=== PATIENT | male | born 1965 | race Caucasian/White ===

== ENCOUNTER 2020-03-29 14:04 | Inpatient (IN) ==
[2020-03-29] MEDS ORDERED: hydrALAZINE HCL 20 MG/ML VIAL IV STA ×2 (14:27→16:05)
--- NOTE | 2020-03-29 14:32 | Emergency Department Note ---
Impression & Plan Hypertensive urgency, Headache, Failure of outpatient treatment ED Provider Note NAME: WILLIAM MEJIA AGE: 54 SEX: M : 1965 ARRIVES VIA: Walk-In INFORMANT: [Patient] ED PROVIDER(S): [Lane Gastelum MD] CHIEF COMPLAINT: Hypertension HISTORY OF PRESENT ILLNESS: The patient is a 54-year-old male who states that he has a history of hypertension. His blood pressure was controlled a few months ago but in the last few weeks, maybe 2 weeks, he has noticed some headaches again and he did buy a home BP monitor. His blood pressure has been higher. His doctors office made some changes to his medications and referred him to cardiology. The patient was seen today by cardiology and his blood pressure was quite high. The patient has had some intermittent chest pain at times, no shortness of breath. He denies weakness in 1 arm or 1 leg. No known Covid exposures. There has been no vomiting or diarrhea. The patient was sent to this ED today for hospitalization. He is going to require a hospital stay to figure out the best regimen to control his increasing blood pressure. REVIEW OF SYSTEMS: See HPI for pertinent positives and negatives. A total of ten systems were reviewed and were otherwise negative. PMHx/PSHx: See Below SOCIAL HISTORY: See Below. PHYSICAL EXAM: GENERAL: Patient is in no acute distress. HEENT: No acute trauma, normocephalic atraumatic, mucous membranes moist, no nasal congestion, no scleral icterus. NECK: No stridor, no adenopathy, no meningismus, trachea is midline. LUNGS: Clear to auscultation bilaterally, no wheeze, no rhonchi, breath sounds equal. HEART: Bradycardic, regular rhythm, no murmurs. ABDOMEN: Soft, nontender, bowel sounds positive, no hernias, no peritonitis. EXTREMITIES: No cyanosis or edema, full range of motion of all the joints without pain or difficulty, no signs for acute trauma. NEUROLOGIC: Oriented x 3, no acute motor or sensory deficits, no focal weakness. SKIN: No rash, no jaundice, no diaphoresis. DIFFERENTIAL DIAGNOSIS: Benign hypertension, hypertensive emergency, cardiovascular pathology, toxicologic, pheochromocytoma, electrolyte abnormality, renal disease, end-organ damage, as well as other pathologies. EMERGENCY DEPARTMENT COURSE/PROCEDURES: ECG: Indication was hypertension. The ECG shows a sinus bradycardia with some LVH. There is a left bundle branch block present. No ST elevation, no PVCs. The QTc is 477. No old ECG available for comparison. Continuous Cardiac Monitoring: An order was placed for continuous cardiac monitoring. The monitor shows a rate of 70 with normal sinus rhythm. MEDICAL DECISION MAKING: There is a mild leukocytosis, this could be consistent with infection or just the stress of his current situation. There is a normal hemoglobin and platelet count. Potassium slightly low at 3.1, no kidney failure. No worrisome liver enzyme elevation. The patient appears to be in a euthyroid state. Chest film does not show pneumonia or CHF. ECG shows a sinus bradycardia, there was LVH present, there was no acute ischemic change. Cardiac enzyme testing x1 is not consistent with acute cardiac injury. On exam, there were no focal neurologic deficits. The patient was not toxic, he was hypertensive. The patient was given IV hydralazine, this did initially lower his blood pressure, a second dose of IV hydralazine was then required when the pressure joseph. The patient was sent in by cardiology. The patient is to be hospitalized for blood pressure management. He may undergo invasive cardiac testing as he has had some chest pain intermittently with his high blood pressure. I did speak to the patient, I talked with case management. The on-call hospitalist was consulted. Past Med/Surg History Medical History GERD (gastroesophageal reflux disease) Hypertension Family History Other Dementia Diabetes Hypertension Social History Smoking Status: Never smoker Feels Safe at Home: Yes Allergies Allergies Allergy/AdvReac Type Severity Reaction Status Date / Time Penicillins Allergy Unknown , Verified 10/25/19 23:35 Home Meds Home Medications Medication Instructions Recorded Confirmed fluticasone propionate [Flonase 1 spray INTRANASAL DAILY 12/16/18 03/29/20 Allergy Relief] omeprazole 20 mg PO DAILY 12/16/18 03/29/20 aspirin [Baby Aspirin] 81 mg PO DAILY 03/29/20 03/29/20 diltiazem HCl 120 mg PO BID 03/29/20 03/29/20 metoprolol tartrate 50 mg PO BID 03/29/20 03/29/20 multivitamin 1 tab PO DAILY 03/29/20 03/29/20 rosuvastatin 5 mg PO HS 03/29/20 03/29/20 tizanidine 2 mg PO TID PRN 03/29/20 03/29/20 Results & Data (ED) Vital Signs Vital Signs - 24 hr 03/29/20 14:12 03/29/20 14:26 03/29/20 14:30 Temperature 36.8 C Temperature Source Oral Pulse Rate 59 L 64 50 L Respiratory Rate 18 18 19 Blood Pressure 205/103 H 189/91 H Blood Pressure Mean 137 116 Pulse Oximetry 98 Oxygen Delivery Method Room Air Sepsis Recent Fever Within 48 Hours No Sepsis New/Unexplained Change in Mental Status No Sepsis Action Taken by Nursing No Action Required 03/29/20 14:31 03/29/20 14:45 03/29/20 15:00 Temperature Temperature Source Pulse Rate 46 L 54 L 55 L Respiratory Rate 17 Blood Pressure Blood Pressure Mean Pulse Oximetry Oxygen Delivery Method Sepsis Recent Fever Within 48 Hours Sepsis New/Unexplained Change in Mental Status Sepsis Action Taken by Nursing 03/29/20 15:07 03/29/20 15:16 03/29/20 15:30 Temperature Temperature Source Pulse Rate 64 57 L Respiratory Rate Blood Pressure 169/92 H 198/102 H Blood Pressure Mean 110 129 Pulse Oximetry Oxygen Delivery Method Sepsis Recent Fever Within 48 Hours Sepsis New/Unexplained Change in Mental Status Sepsis Action Taken by Nursing 03/29/20 15:35 03/29/20 15:45 03/29/20 15:46 Temperature Temperature Source Pulse Rate 55 L 0 L 0 L Respiratory Rate Blood Pressure 205/105 H Blood Pressure Mean 120 Pulse Oximetry Oxygen Delivery Method Sepsis Recent Fever Within 48 Hours Sepsis New/Unexplained Change in Mental Status Sepsis Action Taken by Nursing 03/29/20 16:02 03/29/20 16:03 Temperature Temperature Source Pulse Rate 68 71 Respiratory Rate 15 18 Blood Pressure 211/101 H Blood Pressure Mean 127 Pulse Oximetry Oxygen Delivery Method Sepsis Recent Fever Within 48 Hours Sepsis New/Unexplained Change in Mental Status Sepsis Action Taken by [facility]way Medications Current Medication List: was personally reviewed by me Laboratory Data Attestation: I reviewed the patient's lab results. Result diagrams: 03/29/20 14:46 03/29/20 14:46 Lab Results 03/29/20 03/29/20 Range/Units 14:46 14:46 WBC 12.11 H (4.8-10.8) K/uL RBC 5.11 (4.7-6.1) M/uL Hgb 15.4 (14.0-18.0) g/dL Hct 44.4 (42-52) % MCV 86.9 (80-100) fL MCH 30.1 (25-34) pg MCHC 34.7 (32-36) g/dL RDW Std Deviation 41.6 (36.4-46.3) fL RDW Coeff of Cindi 13.0 (11.5-14.5) % Plt Count 309 (130-400) K/uL MPV 9.6 (7.4-10.4) fL Immature Gran % (Auto) 0.2 % Neut % (Auto) 85.1 % Lymph % (Auto) 8.6 % Mclean % (Auto) 5.3 % Eos % (Auto) 0.6 % Baso % (Auto) 0.2 % Neut # (Auto) 10.30 H (1.4-6.5) K/uL Lymph # (Auto) 1.04 L (1.2-3.4) K/uL Mclean # (Auto) 0.64 H (0.11-0.59) K/uL Eos # (Auto) 0.07 (0-0.5) K/uL Baso # (Auto) 0.03 (0-0.2) K/uL Immature Gran # (Auto) 0.03 H (0.00-0.02) K/uL Sodium 138 (136-145) mmol/L Potassium 3.1 L (3.5-5.1) mmol/L Chloride 101 (98-107) mmol/L Carbon Dioxide 29 (21-32) mmol/L Anion Gap 8.0 (3-11) BUN 17 (7-18) mg/dl Creatinine 1.06 (0.6-1.4) mg/dl Est Cr Clr Drug Dosing 81.5 ml/min Est GFR ( Amer) 93.1 Est GFR (Non-Af Amer) 80.3 BUN/Creatinine Ratio 16.2 (10-20) Glucose 98 (70-99) mg/dl Calcium 9.5 (8.5-10.1) mg/dl Magnesium 2.4 (1.8-2.4) mg/dl Total Bilirubin 0.8 (0.2-1) mg/dl AST 18 (15-37) U/L ALT 34 (12-78) U/L Alkaline Phosphatase 81 (45-117) U/L Troponin I < 0.015 (0-0.045) ng/ml Total Protein 8.6 H (6.4-8.2) gm/dl Albumin 4.5 (3.4-5.0) gm/dl Globulin 4.1 H (2.5-4.0) gm/dl Albumin/Globulin Ratio 1.1 (0.9-2) TSH 2.380 (0.300-4.500) uIu/ml Administered Medications Discontinued Medications Hydralazine HCl (Hydralazine Hcl 20 Mg/Ml Vial) 10 mg IV NOW STA Stop: 03/29/20 14:28 Last Admin: 03/29/20 15:05 Dose: 10 mg Documented by: [id number] Hydralazine HCl (Hydralazine Hcl 20 Mg/Ml Vial) 10 mg IV NOW STA Stop: 03/29/20 16:06 Last Admin: 03/29/20 16:20 Dose: 10 mg Documented by: [id number] Imaging Data Radiologist's Impression: XR chest 1V portable HISTORY: weakness COMPARISON: Chest 10/25/2019. FINDINGS: The lungs are clear. Cardiac silhouette is borderline enlarged. No pleural effusions. No pneumothorax. No evidence for pulmonary edema. No rib fractures. IMPRESSION: Borderline cardiomegaly, unchanged. Otherwise, no acute process within the chest. Discharge Plan Visit Data Chief Complaint: Hypertension Stated Complaint: HYPERTENSION,ABNORMAL EKG ED Provider: Lane Gastelum Discharge Problem: Hypertensive urgency, Headache, Failure of outpatient treatment Patient Disposition: Admitted As Inpatient Condition: Good Forms Stand Alone Forms: My [email or web address] Prescriptions Prescriptions: No Action omeprazole 20 mg capsule,delayed release(DR/EC) 20 mg PO DAILY RF: 0 fluticasone propionate [Flonase Allergy Relief] 50 mcg/actuation [employer],Suspension 1 spray INTRANASAL DAILY RF: 0 multivitamin Tablet 1 tab PO DAILY RF: 0 tizanidine 2 mg tablet 2 mg PO TID PRN (Reason: Spasms) RF: 0 metoprolol tartrate 50 mg tablet 50 mg PO BID RF: 0 aspirin [Baby Aspirin] 81 mg Tablet,Chewable 81 mg PO DAILY RF: 0 diltiazem HCl 60 mg tablet 120 mg PO BID RF: 0 rosuvastatin 5 mg tablet 5 mg PO HS RF: 0 Referrals Referrals: Bette Duff MD [Primary Care Provider] - Discharge Problem: Headache Qualifiers: Headache type: unspecified Headache chronicity pattern: acute headache Intractability: intractable Qualified Code(s): R51.9 - Headache, unspecified
[2020-03-29 15:14] LABS: Basophils # (auto) 0.03 K/uL (0-0.2); Basophils % (auto) 0.2 %; Eosinophils # (auto) 0.07 K/uL (0-0.5); Eosinophils % (auto) 0.6 %; Hematocrit (blood only) 44.4 % (42-52); Hemoglobin 15.4 g/dL (14.0-18.0); Immature Granulocytes # (auto) 0.03 K/uL (0.00-0.02); Immature Granulocytes % (auto) 0.2 %; Lymphocytes # (auto) 1.04 K/uL (1.2-3.4); Lymphocytes % (auto) 8.6 %; Mean Corpuscular Hemoglobin 30.1 pg (25-34); Mean Corpuscular Hgb Conc 34.7 g/dL (32-36); Mean Corpuscular Volume 86.9 fL (80-100); Mean Platelet Volume 9.6 fL (7.4-10.4); Monocytes # (auto) 0.64 K/uL (0.11-0.59); Monocytes % (auto) 5.3 %; Neutrophils % (auto) 85.1 %; Platelet Count 309 K/uL (130-400); RDW Standard Deviation 41.6 fL (36.4-46.3); Red Blood Count 5.11 M/uL (4.7-6.1); White Blood Count 12.11 K/uL (4.8-10.8)
[2020-03-29 15:40] LABS: Alanine Aminotransferase 34 U/L (12-78); Albumin Level 4.5 gm/dl (3.4-5.0); Aspartate Aminotransferase 18 U/L (15-37); BUN Creatinine Ratio 16.2 (10-20); Blood Urea Nitrogen 17 mg/dl (7-18); Calcium 9.5 mg/dl (8.5-10.1); Carbon Dioxide 29 mmol/L (21-32); Chloride 101 mmol/L (98-107); Creatinine Clr Calc Pharmacy 81.5 ml/min; Est GFR (African American) 93.1; Est GFR (Non-African American) 80.3; Glucose 98 mg/dl (70-99); Magnesium 2.4 mg/dl (1.8-2.4); Potassium 3.1 mmol/L (3.5-5.1); Sodium 138 mmol/L (136-145)
--- NOTE | 2020-03-29 15:41 | XRay Report ---
XR chest 1V portable HISTORY: weakness COMPARISON: Chest 10/25/2019. FINDINGS: The lungs are clear. Cardiac silhouette is borderline enlarged. No pleural effusions. No pn eumothorax. No evidence for pulmonary edema. No rib fractures. IMPRESSION: Borderline cardiomegaly, unchanged. Otherwise, no acute process within the chest. ACT 112: Negative or not required by law. Electronically signed by: Moses Gaona M.D. 03/29/2020 3:40 PM
[2020-03-29 15:51] LABS: Albumin Globulin Ratio 1.1 (0.9-2); Alkaline Phosphatase 81 U/L (45-117); Bilirubin,Total 0.8 mg/dl (0.2-1); Globulin 4.1 gm/dl (2.5-4.0); Total Protein 8.6 gm/dl (6.4-8.2); Troponin I < 0.015 ng/ml (0-0.045)
[2020-03-29 17:04] LABS: Appearance Urine Clear (Clear); Bilirubin Urine Negative (Negative); Blood Urine Negative (Negative); Color Urine Yellow; Glucose Urine UA Negative (Negative); Ketones Urine Trace (Negative); Leukocyte Esterase Urine Negative (Negative); Nitrite Urine Negative (Negative); Protein Urine Negative (Negative); Specific Gravity Urine 1.007 (1.000-1.030); Urobilinogen Urine Negative (Negative)
[2020-03-29] MEDS ORDERED: POTASSIUM CHLORIDE CRTAB 20 MEQ TABCR PO STA (17:10)
--- NOTE | 2020-03-29 17:10 | Electrocardiogram Report ---
Test Reason : Blood Pressure : / mmHG Vent. Rate : 054 BPM Atrial Rate : 054 BPM P-R Int : 180 ms QRS Dur : 154 ms QT Int : 504 ms P-R-T Axes : 042 -39 094 degrees QTc Int : 477 ms Poor data quality, interpretation may be adversely affected Sinus bradycardia Possible Left atrial enlargement Left axis deviation Left bundle branch block Abnormal ECG When compared with ECG of 25-OCT-2019 22:08, No significant change was found Confirmed by Darell Mann ([id number]) on 03/29/2020 5:09:52 PM Referred By: Confirmed By:Osbaldo Mann
[2020-03-29] MEDS ORDERED: LORazepam 0.5 MG/1 ML VIAL IV STA (17:34)
[2020-03-29] MEDS ORDERED: STAT IV Infusion **Titration per Protocol STA (17:37)
[2020-03-29] MEDS ORDERED: niCARdipine 25 MG in SODIUM CHLORIDE 0.9% 240 ML IV SCH (17:45)
--- NOTE | 2020-03-29 18:02 | History & Physical Report ---
Date of Service March 29, 2020 Assessment & Plan (1) Hypertensive urgency: (2) LBBB (left bundle branch block): This is a 54 year old M who has a significant PMH of HTN, HLD, PRIMITIVO, less than 60% stenosis of R renal artery, GERD, depression who presents to ED at referral of cardiology secondary to hypertensive urgency. In ED patient did receive two 10 mg doses of IV hydralazine. Upon arrival patient's blood pressure was 205/103, HR 54. After administration of 1st 10mg dose of IV hydralazine it did reduce to 169/92, HR 70s. This was short-lived as he returned to 200s/100s. He received a second dose of the hydralazine without much improvement. Discussed case with cardiology Dr. Patino who recommends admission to ICU for nicardpine gtt. Admit to ICU start nicardipine gtt D/C metoprolol and diltiazem start coreg 12.5mg po bid, 1st dose tonight start losartan 50mg daily, 1st dose tonight CT head w/o contrast given THOMAS and hypertensive urgency cycle troponins due to chest pain, but does appear to be musculoskeletal component echocardiogram - last 01/2020 EF 55%, mild LVH, Grade 1 DD known LBBB - per cardiology likely to undergo cath on Friday but need to get BP better controlled (3) Hypokalemia: K 3.1 give 40 meq KCL x 1 now monitor bmp (4) Leucocytosis: WBC 12k, no s/sx of infection afebrile, monitor (5) HLD (hyperlipidemia): continue statin (6) PRIMITIVO (obstructive sleep apnea): CPAP at HS (7) Renal artery stenosis: Follows nephrology and has seen vascular < 60% of R renal artery stenosis continue ASA, statin (8) GERD (gastroesophageal reflux disease): continue PPI (9) DVT prophylaxis: SCD/TEDS for now until BP under better control Disposition: admit to ICU for nicardipine gtt Follow up: PCP Dr. Duff upon discharge Pt was seen and examined in collaboration with Dr. Mott, please see addendum History of Present Illness Chief Complaint: THOMAS x 1 month and elevated BP. 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 Primary Care Provider: Bette Duff MD This is a 54 year old M who has a significant PMH of HTN, HLD, PRIMITIVO, less than 60% stenosis of R renal artery, GERD, depression who presents to ED at referral of cardiology secondary to hypertensive urgency.Patient complains of headache for the past month. It comes and goes daily. Mostly distributed in the occipital region. Described as a dull ache. Nothing makes it better or worse. He also describes headache behind eyes but associated this to straining looking at computer screen at work. He also admits to subtle chest pressure which is worse with arm or torso movement. He states he has been lifting heavy boxes for moving and attributed to this. 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 Currently he denies any chest pain or shortness of breath at rest. He denies any known sick contacts, recent fever, chills, sweats, dizziness, syncope, cough, hemoptysis, palpitations, shortness of breath at rest, nausea, vomiting, abdominal pain, change in bowel or urinary habits. He states he was hospitalized last summer secondary to hypertension and had been doing well throughout January. He then noticed a return of his headaches and has been monitoring his BP at home. It has been consistently systolically 160s over 190s. He was seen and evaluated in cardiology clinic today and previously had adjustments made on his metoprolol and diltiazem. He previously had been on amlodipine but did not tolerate this secondary to swelling. Due to complaint of headache, chest pain and obvious h ypertensive urgency with blood pressures 200s over 110s in clinic he was referred to ED for further evaluation and admission. Pt does admit to significant amount of stress in last 2 months secondary to having to move with his and kids twice. Currently they are in transition to move again and are living with his in-laws. In ED patient did receive two 10 mg doses of IV hydralazine. Upon arrival patient's blood pressure was 205/103. After administration of 1st 10mg dose of IV hydralazine it did reduce to 169/92. This was short-lived as he returned to 200s over 100s. He received a second dose of the hydralazine without much improvement. His CBC is notable for mild leucocytosis of 12.1k, CMP notable for potassium 3.1 but troponin WNL. Chest x-ray negative for acute process. EKG initially showed sinus bradycardia HR 54 bpm and LBBB. Allergies Allergy/AdvReac Type Severity Reaction Status Date / Time Penicillins Allergy Unknown , Verified 10/25/19 23:35 Home Medications Medication Instructions Recorded Confirmed Type fluticasone propionate [Flonase 1 spray INTRANASAL DAILY 12/16/18 03/29/20 History Allergy Relief] omeprazole 20 mg PO DAILY 12/16/18 03/29/20 History aspirin [Baby Aspirin] 81 mg PO DAILY 03/29/20 03/29/20 History diltiazem HCl 120 mg PO BID 03/29/20 03/29/20 History metoprolol tartrate 50 mg PO BID 03/29/20 03/29/20 History multivitamin 1 tab PO DAILY 03/29/20 03/29/20 History rosuvastatin 5 mg PO HS 03/29/20 03/29/20 History tizanidine 2 mg PO TID PRN 03/29/20 03/29/20 History Past Med/Surg History Medical History Depression GERD (gastroesophageal reflux disease) HLD (hyperlipidemia) Hypertension PRIMITIVO (obstructive sleep apnea) Renal artery stenosis Surgical History History of colonoscopy History of tonsillectomy and adenoidectomy Family History Other Dementia Diabetes Hypertension Social History (Updated 03/29/20 @ 18:12 by Marianne Reza PA-C) Smoking Status: Never smoker Hx Alcohol Use: No Hx Substance Use: No Preferred Language: Latvian Communication Ability: Effective 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 Beliefs That Will Affect Care: None marital status: Current Living Situation: Spouse Current Living Situation Comment: 2 sons 2 yr and 5 yr old Other Information That Helps Us Care for You: No Feels Safe at Home: Yes Safety Concerns: Feels Safe At This Time Assistive Devices: None Review of Systems Review of Systems: All systems reviewed & are unremarkable except as noted in HPI & below Physical Exam Physical Exam: Constitutional: WD/WN, vitals as above, NAD, anxious, sitting up in bed, pleasant, conversing easily Head: Normocephalic, Atraumatic Eyes: PERRL, conjunctivae normal, anicteric sclerae ENMT: external ear and nose normal, oropharynx normal Neck: trachea midline, no thyromegaly normal visual inspection Respiratory: normal respiratory effort, lungs clear to auscultation, no wheeze, rales, rhonchi. Normal insp/exp effort, no accessory muscle use Cardiovascular: RRR, no murmur, no edema Vessels: no JVD or carotid bruit Chest: normal inspection of chest Abdomen: normal bowel sounds, soft, nontender, no hepatosplenomegaly Musculoskeletal: no cyanosis or clubbing, extremities motor strength 5/5 Skin: no rashes, warm and dry normal turgor Neurologic: PERRL, EOMI, accommodation nl, no face palsy, no dysarthria CN's II-XI intact bilaterally and moves all extremities Psychiatric: A+Ox3, euthymic affect : deferred Results & Data Results & Data ([facility]) Vital Signs (Past 12 Hours) Vital Signs Temp Pulse Resp BP Pulse Ox 03/29/20 17:31 80 19 98 03/29/20 17:30 81 21 211/111 H 99 03/29/20 17:27 82 14 99 03/29/20 17:26 80 20 199/110 H 99 03/29/20 17:20 80 22 200/112 H 98 03/29/20 17:10 98 03/29/20 17:09 79 15 98 03/29/20 16:30 75 19 207/101 H 95 03/29/20 16:15 71 16 208/109 H 95 03/29/20 16:03 71 18 211/101 H 03/29/20 16:02 68 15 03/29/20 15:46 0 L 03/29/20 15:45 0 L 205/105 H 03/29/20 15:35 55 L 03/29/20 15:30 198/102 H 03/29/20 15:16 57 L 03/29/20 15:07 64 169/92 H 03/29/20 15:00 55 L 03/29/20 14:45 54 L 03/29/20 14:31 46 L 17 03/29/20 14:30 50 L 19 189/91 H 03/29/20 14:26 64 18 03/29/20 14:12 36.8 C 59 L 18 205/103 H 98 Laboratory Results Short CBC 03/29/20 Range/Units 14:46 WBC 12.11 H (4.8-10.8) K/uL Hgb 15.4 (14.0-18.0) g/dL Hct 44.4 (42-52) % Plt Count 309 (130-400) K/uL BMP 03/29/20 14:46 Sodium 138 Potassium 3.1 L Chloride 101 Carbon Dioxide 29 BUN 17 Creatinine 1.06 Glucose 98 Calcium 9.5 Cardiac Enzymes 03/29/20 Range/Units 14:46 Troponin I < 0.015 (0-0.045) ng/ml Liver Function 03/29/20 Range/Units 14:46 Total Bilirubin 0.8 (0.2-1) mg/dl AST 18 (15-37) U/L ALT 34 (12-78) U/L Alkaline Phosphatase 81 (45-117) U/L Albumin 4.5 (3.4-5.0) gm/dl Urine 03/29/20 Range/Units 16:55 Urine Color Yellow Urine Appearance Clear (Clear) Urine pH 8.0 H (4.5-7.5) Ur Specific [place] 1.007 (1.000-1.030) Urine Protein Negative (Negative) Urine Glucose (UA) Negative (Negative) Diagnostic Findings CXR: IMPRESSION: Borderline cardiomegaly, unchanged. Otherwise, no acute process within the chest. Medications Administered Nicardipine HCl 25 mg/ Sodium (Chloride) 250 mls @ 50 mls/hr IV .Q5H [facility]; Protocol Stop: 04/28/20 17:44 Last Admin: 03/29/20 18:05 Dose: 5 mg/hr, 50 mls/hr Documented by: [id number] Cosigned by: [id number] Discontinued Medications Hydralazine HCl (Hydralazine Hcl 20 Mg/Ml Vial) 10 mg IV NOW STA Stop: 03/29/20 14:28 Last Admin: 03/29/20 15:05 Dose: 10 mg Documented by: [id number] Hydralazine HCl (Hydralazine Hcl 20 Mg/Ml Vial) 10 mg IV NOW STA Stop: 03/29/20 16:06 Last Admin: 03/29/20 16:20 Dose: 10 mg Documented by: [id number] Lorazepam (Ativan) 0.5 mg in 1 mls @ 1 mls/min IV NOW STA Stop: 03/29/20 17:35 Last Admin: 03/29/20 17:59 Dose: 1 mls/min Documented by: [id number] Potassium Chloride (Potassium Chloride Crtab 20 Meq Tabcr) 40 meq PO NOW STA Stop: 03/29/20 17:11 Last Admin: 03/29/20 17:15 Dose: 40 meq Documented by: [id number] ECG Rate (beats per minute): 54 Rhythm: sinus bradycardia Findings: + LBBB Code Status & VTE Plan Code Status Full Code VTE Prophylaxis Plan VTE Prophylaxis will be ordered: Yes Reason for no VTE drug order: Contraindicated (2/2 to hypertensive urgency will do SCD/TEDS for now) Supervising Physician Co-Signing Physician Notes Attending Addendum: care coordinated with KARMA Morgan please refer to her notes for full details, I agree with her notes patient seen and examined, records reviewed by myself as well on exam, patient seen sitting up, just had dinner, alert, oriented, comfortable States he feels improved compared to admission Chest pain-free, headache has resolved Denies dizziness, nausea vomiting, abdominal pain, shortness of breath no other symptoms VS noted and reviewed oriented x 3, not in distress, speaks in sentences with no effort nor accessory muscle use normal rate, regular rhythm, no murmurs clear breath sounds bilaterally non distended, soft, nontender no bipedal edema, erythema, warmth no neuro deficits WBC 12.1 Hg 15.4 Crea 1.06 Troponin: Negative CT head: No acute process EKG:: Left bundle branch block, unchanged compared to EKG on September 2019 ASSESSMENT AND PLAN Hypertensive urgency Multifactorial: Underlying essential hypertension, obstructive sleep apnea, renal artery stenosis Nicardipine drip started Hold losartan and carvedilol also initiated Cardiology service consulted Chest pain Likely secondary to underlying hypertensive urgency Initial troponin negative EKG showing chronic LBBB Trend troponins Echocardiogram Aspirin, losartan, carvedilol Possible cardiac cath on Friday other diagnoses and plan of care as per KARMA Morgan's notes Jamar Mott MD
--- NOTE | 2020-03-29 19:20 | CT Scan Report ---
CT SCAN OF THE BRAIN WITHOUT IV CONTRAST CLINICAL HISTORY: Headache. Hypertension. COMPARISON STUDY: CT of the brain dated 10/26/2019. TECHNIQUE: Unenhanced axial CT scan of the brain is performed from the vertex to the skull base. A d ose lowering technique was utilized adhering to the principles of ALARA. CT DOSE: 614.27 mGy.cm FINDINGS: Brain parenchyma: The brain parenchyma is normal in appearance. There is no hemorrhage, mass effect, or evidence of acute territorial ischemia by CT criteria. Negron-white matter differentiation is preser mer. No extra-axial fluid collection is seen. Ventricles, sulci, cisterns: Normal in configuration. Intracranial vasculature: The visualized intracranial vasculature at the skull base is normal in appe arance. Calvarium: Unremarkable. Sinuses and mastoids: The visualized paranasal sinuses are clear. The mastoid air cells are well pneu matized. Orbits: The bony orbits are grossly intact. IMPRESSION: No intracranial abnormality is identified. ACT 112: Negative or not required by law. Electronically signed by: Lane Garcia M.D. 03/29/2020 7:19 PM
[2020-03-29] MEDS ORDERED: POLYETHYLENE (MIRALAX) 17 GM PACK PO PRN (19:23)
[2020-03-29] MEDS ORDERED: ONDANSETRON INJ 2 MG/ML 2 ML VIAL IV PRN (19:23)
[2020-03-29] MEDS ORDERED: MAGNESIUM HYDROXIDE SUSP 30 ML UDC PO PRN (19:23)
[2020-03-29] MEDS ORDERED: ALUMINUM/MAGNESIUM SUSP 30 ML UDC PO PRN (19:23)
[2020-03-29] MEDS ORDERED: ICU PROTOCOL FOR HYPERGLYCEMIA PRN (19:23)
[2020-03-29] MEDS: ACETAMINOPHEN 325 MG TAB PO PRN (19:46)
[2020-03-29] MEDS: carvediloL 12.5 MG TAB PO SCH (19:49)
[2020-03-29] MEDS: ROSUVASTATIN CALCIUM 5 MG TAB PO SCH (19:50)
[2020-03-29] MEDS ORDERED: LOSARTAN POTASSIUM 50 MG TAB PO SCH (20:00)
--- NOTE | 2020-03-29 20:09 | Critical Care Consultation ---
Date of Consultation March 29, 2020 Assessment & Plan (1) Admitted to intensive care unit: Reason Critically Ill: 54-year-old male with hypertensive urgency with systolic blood pressures in the 200s with associated headache. Requiring close hemodynamic monitoring status post institution of nicardipine drip. NEURO - * CAM ICU: NEGATIVE * Headache: * Has appears to wax and wane over the last 2 weeks. * Has previously been associated with his hypertension. * Will continue to monitor for any changes or improvements pending improvement of his blood pressure. * No focal neurological deficits on exam, thankfully. CARDIAC/VASCULAR - * Hypertensive urgency: * Complicated by diagnosis of RIGHT-sided renal artery stenosis. * Has had improvement with IV hydralazine as well as addition of p.o. medications. * Titrate down nicardipine drip as tolerated. * Troponins initially negative. * EKG shows sinus bradycardia at 54 bpm. Ongoing left bundle branch block appreciated. QTc 477 ms. * Patient without chest pain or other concerning ACS symptoms during hypertensive urgency episode, thankfully. * Appreciate cardiology recommendations. * Monitor on telemetry. RESPIRATORY - * No history of pulmonary disease. * Saturating well on room air. GI/NUTRITION - * Heart healthy diet RENAL/LYTES - * Renal artery stenosis: * Obviously made on prior imaging studies. * With great improvement in blood pressure, would avoid repeat imaging studies at this time or further laboratory assessment. * No significant electrolyte derangements. - * No concerns at this time. ENDO - * No history of diabetes or thyroid disease. * BSGs per unit protocol. ISS --> gtt per unit policy. HEME - * Stable H&H. ID - * No concerns for infectious process at this time. LINES/IV ACCESS - * PIVs x2 DVT PROPHYLAXIS - * Will hold on chemoprophylaxis at this time with anticipation for early ambulation given significant improvement in blood pressure control. * SCDs I have personally spent 35 minutes of critical care time in the direct management of this patient. This is a life/limb threatening event. This includes time spent evaluating patient, direct bedside care, chart review, placing orders, interpretation of diagnostic studies, discussion with consultants, patient, and family members, as well as other required patient management activities. This time is exclusive of all separately billable procedures, and teaching time and separate from and in addition to any other critical care service time. Thank you for allowing us to participate in the care of this patient. Please refer to my attending physician's documentation for any further recommendations. (2) Hypertensive urgency: (3) Headache: (4) HLD (hyperlipidemia): (5) PRIMITIVO (obstructive sleep apnea): (6) Renal artery stenosis: (7) Depression: (8) Hypokalemia: (9) LBBB (left bundle branch block): History of Present Illness Attending Physician: Jamar Mott MD History of Present Illness Patient is a 54-year-old male with significant past medical history of hypertension, hyperlipidemia, obstructive sleep apnea, renal artery stenosis, and depression who presented to the emergency department after being seen on a regular follow-up visit at his outpatient cardiology clinic. Per the patient, he states that he has been experiencing headaches over the last few weeks. He states they wax and wane, but have become more consistent over the last few days. He describes the headache is constant and located across the entire middle of his head extending from the forehead to the occiput. His blood pressure readings were found to be 200s over 100s in the clinic. He was directed to the emergency department for further evaluation and management of his hypertensive urgency. Upon evaluation in the emergency department, the patient was treated with IV hydralazine. CT the head was found to be unremarkable. Troponin was initially negative. EKG demonstrates a sinus bradycardia with unchanged left bundle branch block. No ST elevations noted. Patient initiated on nicardipine drip and admitted to the ICU for further evaluation management. Upon evaluation in the ICU, the patient is awake, alert, and oriented. He states that his headache is feeling slightly better, but admits that it fluctuates in nature. Otherwise, he offers no complaints. Specifically, the patient denies any blurry vision, double vision, lightheadedness, slurred speech, facial droop, unilateral weakness/numbness, chest pain, palpitations, pleuritic pain, nausea, vomiting, abdominal pain. He denies any COVID-19 exposures or recent sequelae of symptoms. Allergies Allergy/AdvReac Type Severity Reaction Status Date / Time Penicillins Allergy Unknown , Verified 10/25/19 23:35 amlodipine AdvReac Mild edema Verified 03/30/20 08:31 Home Medications Medication Instructions Recorded Confirmed Type fluticasone propionate [Flonase 1 spray INTRANASAL DAILY 12/16/18 03/29/20 History Allergy Relief] omeprazole 20 mg PO DAILY 12/16/18 03/29/20 History aspirin [Baby Aspirin] 81 mg PO DAILY 03/29/20 03/29/20 History diltiazem HCl 120 mg PO BID 03/29/20 03/29/20 History metoprolol tartrate 50 mg PO BID 03/29/20 03/29/20 History multivitamin 1 tab PO DAILY 03/29/20 03/29/20 History rosuvastatin 5 mg PO HS 03/29/20 03/29/20 History tizanidine 2 mg PO TID PRN 03/29/20 03/29/20 History Patient History Medical History Depression GERD (gastroesophageal reflux disease) HLD (hyperlipidemia) Hypertension PRIMITIVO (obstructive sleep apnea) Renal artery stenosis Surgical History History of colonoscopy History of tonsillectomy and adenoidectomy Family History Other Dementia Diabetes Hypertension Social History Smoking Status: Never smoker Hx Alcohol Use: No Hx Substance Use: No Preferred Language: [place] Communication Ability: Effective 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 All else were negative. Physical Exam Physical Exam: VITAL SIGNS - Vital signs and nursing notes were reviewed. GENERAL - 54-year-old male appearing his stated age who is in no acute distress. Communicates well with provider and answers questions appropriately. HEAD - Normocephalic, Atraumatic. No Waters's Sign or Raccoon's Eyes. No depressed skull fractures palpable. EYES - PERRL with EOMI bilaterally. Sclera anicteric. Palpebral conjunctiva pink and moist with no injection noted. EARS - No deformities of external structures noted on gross examination bilaterally. NOSE - Midline and without cyanosis. No epistaxis or purulent drainage noted. MOUTH/OROPHARYNX - Without perioral cyanosis. Buccal mucosa pink and moist and without leukoplakia. Tongue midline with equal elevation of palate bilaterally. No tonsillar hypertrophy, erythema, or exudates noted. Good dentition noted. NECK - Neck with FROM. Supple to palpation. No lymphadenopathy noted. No nuchal rigidity. LUNGS - Chest wall symmetric without accessory muscle use, intercostals retr actions, or central cyanosis. Normal vesicular breath sounds CTA B/L. No wheezes, rales, or rhonchi appreciated. CARDIAC - RRR with S1/S2. No murmur, rubs, or gallops appreciated. ABDOMEN - Abdominal contour flat without pulsations or visible masses. BS normoactive all four quadrants. No tenderness, palpable masses, hepatosplenomegaly, or ascites noted. EXTREMITIES - No pretibial edema present. +3/5 radial and dorsalis pedis pulses palpated throughout. FROM with no tremors, fasciculations, or clonus noted on PROM throughout. +5/5 strength noted in UE/LE bilaterally. NEUROLOGIC - Cranial nerves II through XII grossly intact. Sensory intact to light touch throughout. Patellar reflexes +2/4, Achilles reflexes present. Patient able to perform rapid alternating movements appropriately. Negative Pronator Drift. PSYCH - A&Ox3 and cooperates fully with examiner. Pt is very pleasant and interacts well with examiner. Results & Data Results & Data ([facility]) Vital Signs (Past 12 Hours) Vital Signs Temp Pulse Resp BP Pulse Ox 03/29/20 18:46 96 H 19 03/29/20 18:45 96 H 15 181/94 H 03/29/20 18:31 94 H 21 03/29/20 18:30 91 H 15 176/93 H 03/29/20 18:16 81 18 97 03/29/20 18:15 88 18 189/103 H 96 03/29/20 18:06 79 16 98 03/29/20 18:05 79 17 204/110 H 98 03/29/20 18:00 82 16 214/110 H 99 03/29/20 17:31 80 19 98 03/29/20 17:30 81 21 211/111 H 99 03/29/20 17:27 82 14 99 03/29/20 17:26 80 20 199/110 H 99 03/29/20 17:20 80 22 200/112 H 98 03/29/20 17:10 98 03/29/20 17:09 79 15 98 03/29/20 16:30 75 19 207/101 H 95 03/29/20 16:15 71 16 208/109 H 95 03/29/20 16:03 71 18 211/101 H 03/29/20 16:02 68 15 03/29/20 15:46 0 L 03/29/20 15:45 0 L 205/105 H 03/29/20 15:35 55 L 03/29/20 15:30 198/102 H 03/29/20 15:16 57 L 03/29/20 15:07 64 169/92 H 03/29/20 15:00 55 L 03/29/20 14:45 54 L 03/29/20 14:31 46 L 17 03/29/20 14:30 50 L 19 189/91 H 03/29/20 14:26 64 18 03/29/20 14:12 36.8 C 59 L 18 205/103 H 98 Coding Level of Care Code Critical Care 1st 30-74 mins Diagnoses Admitted to intensive care unit Z78.9 Hypertensive urgency I16.0 Headache R51.9 Headache chronicity pattern: acute headache Headache type: unspecified Intractability: intractable HLD (hyperlipidemia) E78.5 PRIMITIVO (obstructive sleep apnea) G47.33 Renal artery stenosis I70.1 Depression F32.9 Hypokalemia E87.6 LBBB (left bundle branch block) I44.7 Time Spent (min) 35 (1) Headache Headache chronicity pattern: acute headache Headache type: unspecified Intractability: intractable Qualified Code(s): R51.9 - Headache, unspecified
[2020-03-30 03:09] LABS: Basophils # (auto) 0.03 K/uL (0-0.2); Basophils % (auto) 0.3 %; Eosinophils # (auto) 0.08 K/uL (0-0.5); Eosinophils % (auto) 0.8 %; Hemoglobin 13.9 g/dL (14.0-18.0); Immature Granulocytes # (auto) 0.03 K/uL (0.00-0.02); Immature Granulocytes % (auto) 0.3 %; Lymphocytes # (auto) 1.26 K/uL (1.2-3.4); Lymphocytes % (auto) 12.6 %; Mean Corpuscular Hemoglobin 30.5 pg (25-34); Mean Corpuscular Hgb Conc 34.8 g/dL (32-36); Mean Corpuscular Volume 87.7 fL (80-100); Mean Platelet Volume 9.6 fL (7.4-10.4); Monocytes # (auto) 0.89 K/uL (0.11-0.59); Monocytes % (auto) 8.9 %; Neutrophils # (auto) 7.69 K/uL (1.4-6.5); Neutrophils % (auto) 77.1 %; Platelet Count 290 K/uL (130-400); RDW Coefficient of Variation 13.3 % (11.5-14.5); RDW Standard Deviation 42.3 fL (36.4-46.3); Red Blood Count 4.56 M/uL (4.7-6.1); White Blood Count 9.98 K/uL (4.8-10.8)
[2020-03-30 03:27] LABS: BUN Creatinine Ratio 14.9 (10-20); Calcium 8.8 mg/dl (8.5-10.1); Creatinine Clr Calc Pharmacy 65.5 ml/min; Est GFR (African American) 71.4; Est GFR (Non-African American) 61.6; Potassium 3.5 mmol/L (3.5-5.1)
[2020-03-30 03:46] LABS: Troponin I 0.171 ng/ml (0-0.045)
--- NOTE | 2020-03-30 08:10 | Critical Care Progress Note ---
Date of Service March 30, 2020 Assessment & Plan (1) Hypertensive urgency: 54 yo M with hx PRIMITIVO w/o CPAP, HTN, HLD, LBBB, depression admitted for hypertensive urgency. 1) HTNive urgency - head CT negative for ischemic or acute changes in ER - agree with medication changes from cardizem and metoprolol to carvedilol and losartan. - taken off nicardipine drip overnight - high degree of anxiety, suspect part of elevated blood pressures in relation to recent stressful life events and poorly managed anxiety - patient also has not been able to get CPAP supplies for PRIMITIVO control, which will also help control BP going forward. - goal BP decrease by 25% within the next 12 hours to reduce risk of ischemic stroke - echocardiogram pending - okay to downgrade out of ICU to telemetry. - elevated troponin of 0.093 likely secondary to cardiac stress from HTN. Cardiac cath plan per cardiology Thank you for allowing us to be part of this patient's care. Please refer to Dr. Greene's documentation for any further recommendations. (2) LBBB (left bundle branch block): (3) Admitted to intensive care unit: (4) Renal artery stenosis: Admission and Anticipated Discharge Date Admission Date: March 29, 2020 Supervising Physician Co-Signing Physician Notes Dr. Ferraro was the resident-physician during care of patient. I separately evaluated patient for calderón portions of the history and the exam. I was present during the critical portion of medical decision making, and I discussed the case with the resident. I generally agree with the findings and plan except for any additions/exceptions noted. Patient's blood pressure substantially improved. Continue oral agents as per cardiology recommendations. He needs to be more compliant with his CPAP. He actually has not yet received a CPAP. Weight loss is advised. He has a lot of stress in his life which is likely contributing to his hypertension as well. He had a mild troponin leak which is likely related to demand ischemia. He does have mild chest pain. Cardiology is recommending a left heart cath as an outpatient. He is stable to be transferred to the floor. Subjective Anxious 54 yo M admitted for hypertensive urgency. this morning feels mildly better than when admitted, says mostly he is less anxious but still concerned about the turn of events and level of care he is requiring. States his blood pressures were normal in january when he saw his PCP dr. pierce. By february, he had many more stressors, including having to move his family twice in 3 months and noted his blood pressures at home were increasing. His PCP changed his medication regimen to include cardizem and metoprolol, and sent him to Dr. Patino for evaluation. At Dr. Patino's office he was found to be hypertensive in the 200s/100s and sent to the ED for evaluation. Diet includes processed foods, but he does not add salt on top of food. Drinks lots of water during the day. Describes headaches that he has as going from top of his head down his neck and back of head. fairly constant on and off throughout the last 3 weeks. Denies blurring vision, weakness, dizziness, chest pain, abdominal pain, numbness, tingling. Review of Systems Constitutional: no fever, no chills, no body aches and no fatigue Respiratory: no cough and no dyspnea Cardiovascular: no chest pain, no dyspnea and no edema Gastrointestinal: no abdominal pain, no nausea, no vomiting, no constipation and no diarrhea/loose stools Neurologic: + headache(s); no localized weakness, no generalized weakness, no tingling, no numbness, no dizziness and no confusion Psychiatric: + anxiety Physical Exam Physical Exam: VITAL SIGNS - Vital signs and nursing notes were reviewed. GENERAL - 54-year-old Male anxious appearing sitting up in bed SKIN - Without rashes. HEAD - NC/AT. EYES - PERRL. Sclera anicteric. Palpebral conjunctiva pink and moist with no injection noted. LUNGS - CTA BL, no crackles, rhonchi, rubs. CARDIAC - RRR. No murmur, rubs, or gallops appreciated. ABDOMEN -soft nontender nondistended with normal bowel sounds. EXTREMITIES - No clubbing or peripheral cyanosis. No pretibial edema present. radial and dorsalis pedis pulses palpated bilaterally. NEUROLOGIC - No focal neurological deficits noted on exam. Results & Data Results & Data ([facility]) Vital Signs (Past 12 Hours) Vital Signs Temp Pulse Resp BP Pulse Ox 03/30/20 07:45 37.2 C 99 H 24 03/30/20 07:41 65 03/30/20 07:30 75 26 H 177/100 H 03/30/20 07:15 72 19 03/30/20 07:00 70 15 03/30/20 06:45 66 17 03/30/20 05:30 54 L 13 144/79 H 96 03/30/20 04:55 55 L 13 146/85 H 97 03/30/20 04:30 63 17 146/85 H 96 03/30/20 03:30 57 L 13 128/73 96 03/30/20 03:26 56 L 14 96 03/30/20 02:30 60 14 122/72 96 03/30/20 01:30 61 15 126/72 95 03/30/20 00:30 60 15 115/71 97 03/29/20 23:35 72 15 120/73 97 03/29/20 23:33 67 03/29/20 22:30 76 14 122/77 96 03/29/20 22:14 70 18 96 03/29/20 21:30 74 16 139/77 96 03/29/20 20:57 81 18 148/78 H 97 03/29/20 20:56 81 19 156/81 H 97 03/29/20 20:22 92 H 22 154/85 H 97 Laboratory Results WBC 9.98 K/uL (4.8-10.8) 03/30/20 02:36 RBC 4.56 M/uL (4.7-6.1) L 03/30/20 02:36 Hgb 13.9 g/dL (14.0-18.0) L 03/30/20 02:36 Hct 40.0 % (42-52) L 03/30/20 02:36 MCV 87.7 fL (80-100) 03/30/20 02:36 MCH 30.5 pg (25-34) 03/30/20 02:36 MCHC 34.8 g/dL (32-36) 03/30/20 02:36 RDW Std Deviation 42.3 fL (36.4-46.3) 03/30/20 02:36 RDW Coeff of Cindi 13.3 % (11.5-14.5) 03/30/20 02:36 Plt Count 290 K/uL (130-400) 03/30/20 02:36 MPV 9.6 fL (7.4-10.4) 03/30/20 02:36 Immature Gran % (Auto) 0.3 % 03/30/20 02:36 Neut % (Auto) 77.1 % 03/30/20 02:36 Lymph % (Auto) 12.6 % 03/30/20 02:36 [place] % (Auto) 8.9 % 03/30/20 02:36 Eos % (Auto) 0.8 % 03/30/20 02:36 Baso % (Auto) 0.3 % 03/30/20 02:36 Neut # (Auto) 7.69 K/uL (1.4-6.5) H 03/30/20 02:36 Lymph # (Auto) 1.26 K/uL (1.2-3.4) 03/30/20 02:36 [place] # (Auto) 0.89 K/uL (0.11-0.59) H 03/30/20 02:36 Eos # (Auto) 0.08 K/uL (0-0.5) 03/30/20 02:36 Baso # (Auto) 0.03 K/uL (0-0.2) 03/30/20 02:36 Immature Gran # (Auto) 0.03 K/uL (0.00-0.02) H 03/30/20 02:36 Sodium 140 mmol/L (136-145) 03/30/20 02:36 Potassium 3.5 mmol/L (3.5-5.1) 03/30/20 02:36 Chloride 106 mmol/L (98-107) 03/30/20 02:36 Carbon Dioxide 30 mmol/L (21-32) 03/30/20 02:36 Anion Gap 4.0 (3-11) 03/30/20 02:36 BUN 20 mg/dl (7-18) H 03/30/20 02:36 Creatinine 1.32 mg/dl (0.6-1.4) 03/30/20 02:36 Est Cr Clr Drug Dosing 65.5 ml/min 03/30/20 02:36 Est GFR ( Amer) 71.4 03/30/20 02:36 Est GFR (Non-Af Amer) 61.6 03/30/20 02:36 BUN/Creatinine Ratio 14.9 (10-20) 03/30/20 02:36 Glucose 98 mg/dl (70-99) 03/30/20 02:36 POC Glucose 107 mg/dl (70-99) H 03/30/20 11:08 Calcium 8.8 mg/dl (8.5-10.1) 03/30/20 02:36 Magnesium 2.4 mg/dl (1.8-2.4) 03/29/20 14:46 Total Bilirubin 0.8 mg/dl (0.2-1) 03/29/20 14:46 AST 18 U/L (15-37) 03/29/20 14:46 ALT 34 U/L (12-78) 03/29/20 14:46 Alkaline Phosphatase 81 U/L (45-117) 03/29/20 14:46 Troponin I 0.093 ng/ml (0-0.045) H* 03/30/20 05:48 Total Protein 8.6 gm/dl (6.4-8.2) H 03/29/20 14:46 Albumin 4.5 gm/dl (3.4-5.0) 03/29/20 14:46 Globulin 4.1 gm/dl (2.5-4.0) H 03/29/20 14:46 Albumin/Globulin Ratio 1.1 (0.9-2) 03/29/20 14:46 TSH 2.380 uIu/ml (0.300-4.500) 03/29/20 14:46 Urine Color Yellow 03/29/20 16:55 Urine Appearance Clear (Clear) 03/29/20 16:55 Urine pH 8.0 (4.5-7.5) H 03/29/20 16:55 Ur Specific Miller 1.007 (1.000-1.030) 03/29/20 16:55 Urine Protein Negative (Negative) 03/29/20 16:55 Urine Glucose (UA) Negative (Negative) 03/29/20 16:55 Urine Ketones Trace (Negative) H 03/29/20 16:55 Urine Blood Negative (Negative) 03/29/20 16:55 Urine Nitrite Negative (Negative) 03/29/20 16:55 Urine Bilirubin Negative (Negative) 03/29/20 16:55 Urine Urobilinogen Negative (Negative) 03/29/20 16:55 Ur Leukocyte Esterase Negative (Negative) 03/29/20 16:55 Nasal Screen MRSA (PCR) Negative (Negative) 03/29/20 19:30 SARS-CoV-2 Ag (Rapid) Negative (Negative) 03/29/20 Unknown Resident Activity Tracking Resident Involvement: Resident Care Provided Care Provided: Adult Hospital Medicine
[2020-03-30] MEDS: carvediloL 12.5 MG TAB PO SCH ×2 (08:46→20:20)
[2020-03-30] MEDS: LOSARTAN POTASSIUM 50 MG TAB PO SCH ×2 (08:46→20:20)
[2020-03-30] MEDS: MULTIVITAMIN TAB PO SCH (08:47)
[2020-03-30] MEDS: ASPIRIN 81 MG ECTAB PO SCH (08:47)
[2020-03-30] MEDS: PANTOprazole 40 MG TAB PO SCH (08:47)
[2020-03-30] MEDS ORDERED: amLODIPine BESYLATE 5 MG TAB PO SCH (09:00)
--- NOTE | 2020-03-30 10:22 | Cardiology Consultation ---
"Date of Consultation March 30, 2020 Assessment & Plan (1) Hypertensive urgency: (2) PRIMITIVO (obstructive sleep apnea): (3) Headache: (4) Renal artery stenosis: (5) GERD (gastroesophageal reflux disease): (6) LBBB (left bundle branch block): Per my recommendations the patient was admitted to the intensive care unit to be started on a nicardipine drip after 2 doses of IV hydralazine failed to improve his BP in the ER. Overnight his pressure significantly improved on nicardipine drip and weaned off. Currently this a.m. he states he is feeling a little bit better. Notes that his headache is mostly gone and has not had any bad chest discomfort that he noted previously. Still little anxious but overall feeling better. He was started on carvedilol 12.5 mg p.o. twice daily, losartan 50 mg p.o. twice daily and his outpatient metoprolol tartrate and diltiazem were discontinued. Pressures improve this a.m. after morning meds. EKG unchanged. Minimal troponin elevation not surprising given clinical setting. Plan will be to control blood pressure today with oral medications and proceed with cardiac catheterization in the a.m. on 03/31/2020. Plan again discussed with patient and he is in agreement. N.p.o. after midnight. Okay to transfer to telemetry as long as blood pressures remain stable this a.m. with his current oral regimen History of Present Illness Reason for Consultation: hypertensive urgency Requesting Physician: Dr. Mott Attending Physician: Jamar Mott MD History of Present Illness It was my pleasure to see Mr. Booth in re-evaluation today March 29, 2020. As you know he is a very pleasant 54-year-old gentleman who recently established with us here in the cardiology department for difficult to control hypertension. He presents today in routine follow-up stating these not been feeling well. He states that for approximately the last month he has been having issues with ongoing headaches. He denies any pattern to the headaches but states that they are usually constant. Upon further questioning of since he has had some vague chest pressure on occasion but he is not sure if it is related to activity. He states he feels tired and run down and just not his normal self. He has been compliant with his medications and his diltiazem was recently increased as well. He is set up for CPAP unfortunately has been some billing issues with the company and he has not received yet. PAST MEDICAL HISTORY: 1. Hypertension 2. Less than 60% stenosis of the right renal artery 3. Left bundle branch block 4. Depression 5. Erectile dysfunction 6. GERD 7. Obstructive sleep apnea Past Surgical History: Procedure Laterality Date COLONOSCOPY W/ BIOPSY (RECTUM) 07/21/08 diverticulosis- path normal COLONOSCOPY, DIAGNOSTIC (RECTUM) 09/04/2018 diverticulosis sigmoid and descending colon/biopsies show adenomatous polyps/recall 5 years/COLONOSCOPY FLEXIBLE PROXIMAL DIAGNOSTIC performed by Monroe Arango MD at ENDOSCOPY [facility] EGD, FLEXIBLE, W/BIOPSY 03/23/08 mild esophageal inflammation EGD, FLEXIBLE, W/BIOPSY 01/08/11 lymphangiectasia- await path REMOVE TONSILS & ADENOIDS, UNDER 12 T & A, age<12 Family History Problem Relation Age of Onset Endocrine Disorder Mother thyroid No Past Hx Father No Past Hx Grandmother (Maternal) Diabetes Grandmother (Maternal) No Past Hx Brother Social History Tobacco Use Smoking status: Never Smoker Smokeless tobacco: Never Used Tobacco comment: roommate smokes Substance Use Topics Alcohol use: Yes Comment: week ends beer 6 in 2 days Drug use: No He is . He lives at home with his and 2 young sons ages 4 and 2. 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 Review of Systems: Pertinent positives as per HPI, comprehensive 10 system review otherwise negative. Allergies as of 03/29/2020 - Reviewed 03/29/2020 Allergen Reaction Noted Amlodipine Edema Other 01/12/2020 Food (see comments) 07/04/2014 Pcn [penicillins] 07/16/2007 Current Outpatient Medications Medication Sig Dispense Refill tiZANidine HCl 2 MG Oral Tablet (ZANAFLEX) Take 1 Tab by mouth every 6 hours as needed for Muscle spasms. 30 Tab 5 Fluticasone Propionate 50 MCG/ACT Nasal Suspension (FLONASE) Administer 2 Sprays into each nostril daily. 47.4 mL 1 dilTIAZem HCl 60 MG Oral Tablet (CARDIZEM) TAKE 2 TABLETS BY MOUTH IN THE MORNING AND 1 TABLET AT NIGHT (Patient taking differently: TAKE 2 TABLETS BY MOUTH IN THE MORNING AND 2 TABLETs AT NIGHT) 90 Tab 2 Aspirin 81 MG Oral Tablet Chewable Take 1 Tab by mouth daily. with food. 100 Tab 5 Rosuvastatin Calcium 5 MG Oral Tablet (Crestor) Take 1 Tab by mouth daily. 30 Tab 5 Omeprazole 20 MG Oral Capsule Delayed Release (PriLOSEC) TAKE 1 CAPSULE DAILY 60 Cap 5 Metoprolol Tartrate 50 MG Oral Tablet (LOPRESSOR) Take 1 Tab by mouth 2 times a day. 60 Tab 5 Levocetirizine Dihydrochloride (XYZAL) 5 MG Tablet Take 1 Tab by mouth every evening. Clindamycin Phosphate 1 % external solution Apply the acne like spots on scalp and back of neck 2x daily when flaring until resolved 30 mL 2 econazole nitrate (SPECTAZOLE) 1 % cream Apply 2x daily to rash on face until resolved (next dermatology appointment) 85 g 3 Tadalafil (CIALIS) 10 MG Tablet Take 1 Tab by mouth daily as needed for Erectile Dysfunction. 8 Tab 5 BENADRYL ALLERGY 25 MG PO TABS 2 TABLETS AT ONSET OF ITCHING, HIVES AND E VERY 4 TO 6 HOURS NEEDED 30 Tab 5 MULTIVITAMINS PO CAPS daily 0 TYLENOL EXTRA STRENGTH 500 MG PO TABS 2 TABLETs EVERY 4 HOURS NEEDED 0 PHYSICAL EXAM: Vital Signs: BP 208/102 (BP Site: Right Arm, BP Position: Sitting, BP Cuff Size: Large) | Pulse 62 | Temp 36.1 C (96.9 F) (Tympanic) | Resp 16 | Wt 84.6 kg (186 lb 9.6 oz) | BMI 27.56 kg/m | BSA 2.03 m General: Awake, alert and oriented x 3. No acute distress. HEENT: Normocephalic, atraumatic. Pupils equal, round and reactive to light and accommodation. Extraocular muscles are intact. Anicteric sclera. Moist mucous membranes. Neck: No JVD. No bruit. Cardiovascular: Regular. Positive S-4. Normal S-1 and S-2. No S-3. No murmurs or rubs. Pulmonary: Clear to auscultation bilaterally. No rales, rhonchi, or wheezing. Abdomen: Bowel sounds x 4, soft. No rebound, guarding or tenderness. No organomegaly. Extremities: No clubbing, cyanosis or edema. +2 pedal pulses bilaterally. Skin: Warm and dry. Test results: Twelve lead EKG performed today and plan reviewed this time shows normal sinus rhythm at 62 beats per minute left bundle branch block with right axis deviation. The axis is shifted right considerably compared to his previous EKG. Echocardiogram from January 2020: Interpretation Summary The primary indication after review was deemed appropriate and the examination was performed. Normal LV chamber size with mild concentric LVH. Normal LV systolic function without regional wall motion abnormality. Calculated LV ejection Fraction = 58% (bi-plane method of discs). Grade 1 diastolic dysfunction. No significant valvular pathology. Mild left atrial enlargement. IMPRESSION: 1. Hypertensive urgency 2. Left bundle branch block with recent axis shift 3. Nonobstructive renal artery stenosis on the right 4. GERD 5. Hyperlipidemia RECOMMENDATIONS: It was my pleasure to see Mr. Booth in re-evaluation today. I do believe it that he is suffering from hypertensive urgency at this point with his pressure being over 200/100 and his vague symptoms of headache and chest discomfort. So after lengthy discussion it was agreed that he will proceed to [facility] Emergency Department for further workup, care and admission. I have discussed the case with the emergency room attending and he will likely be receiving IV hydralazine upon arrival. Obviously, blood work including troponin will be drawn as well. I would like to maximize his oral medications during admission and change his metoprolol to carvedilol and his diltiazem to felodipine (history of edema with amlodipine). Further changes may be considered as well. He was offered transfer via EMS but preferred to have his drive him. Given his left bundle branch block and chest discomfort he will require cardiac catheterization during this admission. The left bundle branch block is not new and does not qualify as ACS. However, full workup of his left bundle has not yet been completed. The patient left the office in good spirits after verbalizing that all of their questions were answered to satisfaction. Prior to their next visit, they were invited to call me with any questions or concerns. Thank you very much for allowing me to participate in the care of your patient. Allergies Allergy/AdvReac Type Severity Reaction Status Date / Time Penicillins Allergy Unknown , Verified 10/25/19 23:35 amlodipine AdvReac Mild edema Verified 03/30/20 08:31 Home Medications Medication Instructions Recorded Confirmed Type fluticasone propionate [Flonase 1 spray INTRANASAL DAILY 12/16/18 03/29/20 History Allergy Relief] omeprazole 20 mg PO DAILY 12/16/18 03/29/20 History aspirin [Baby Aspirin] 81 mg PO DAILY 03/29/20 03/29/20 History diltiazem HCl 120 mg PO BID 03/29/20 03/29/20 History metoprolol tartrate 50 mg PO BID 03/29/20 03/29/20 History multivitamin 1 tab PO DAILY 03/29/20 03/29/20 History rosuvastatin 5 mg PO HS 03/29/20 03/29/20 History tizanidine 2 mg PO TID PRN 03/29/20 03/29/20 History Patient History Medical History Depression GERD (gastroesophageal reflux disease) HLD (hyperlipidemia) Hypertension PRIMITIVO (obstructive sleep apnea) Renal artery stenosis Surgical History History of colonoscopy History of tonsillectomy and adenoidectomy Family History Other Dementia Diabetes Hypertension Social History Smoking Status: Never smoker Hx Alcohol Use: No Hx Substance Use: No Preferred Language: [place] Communication Ability: Effective Job Interviewer Required: No Beliefs That Will Affect Care: None marital status: Current Living Situation: Spouse Current Living Situation Comment: 2 sons 2 yr and 5 yr old Other Information That Helps Us Care for You: No Feels Safe at Home: Yes Safety Concerns: Feels Safe At This Time Assistive Devices: None Review of Systems Review of Systems: All systems reviewed & are unremarkable except as noted in HPI & below Physical Exam Physical Exam: General: Awake, alert and oriented x 3. No acute distress. HEENT: Normocephalic, atraumatic. Pupils equal, round and reactive to light and accommodation. Extraocular muscles are intact. Anicteric sclera. Moist mucous membranes. Neck: No JVD. No bruit. Cardiovascular: Regular. Positive S-4. Normal S-1 and S-2. No S-3. No murmurs or rubs. Pulmonary: Clear to auscultation B/L. No rales, rhonchi or wheezing Abdomen: Bowel sounds x 4, soft. No rebound, guarding or tenderness. No organomegaly. Extremities: No clubbing, cyanosis or edema. +2 pedal pulses bilaterally. Skin: Warm and dry. Results & Data ([facility]) Vital Signs (Past 12 Hours) Vital Signs Temp Pulse Resp BP Pulse Ox 03/30/20 10:15 70 13 96 03/30/20 10:03 75 97 03/30/20 09:31 83 25 H 109/103 H 03/30/20 09:30 79 18 03/30/20 09:15 72 16 03/30/20 09:00 80 20 03/30/20 08:45 81 22 03/30/20 08:30 84 20 168/88 H 03/30/20 08:15 79 17 03/30/20 08:00 77 18 03/30/20 07:45 37.2 C 99 H 24 03/30/20 07:41 65 03/30/20 07:30 75 26 H 177/100 H 03/30/20 07:15 72 19 03/30/20 07:00 70 15 03/30/20 06:45 66 17 03/30/20 05:30 54 L 13 144/79 H 96 03/30/20 04:55 55 L 13 146/85 H 97 03/30/20 04:30 63 17 146/85 H 96 03/30/20 03:30 57 L 13 128/73 96 03/30/20 03:26 56 L 14 96 03/30/20 02:30 60 14 122/72 96 03/30/20 01:30 61 15 126/72 95 03/30/20 00:30 60 15 115/71 97 03/29/20 23:35 72 15 120/73 97 03/29/20 23:33 67 03/29/20 22:30 76 14 122/77 96 (1) Headache Headache chronicity pattern: acute headache Headache type: unspecified Intractability: intractable Qualified Code(s): R51.9 - Headache, unspecified"
[2020-03-30] MEDS: ACETAMINOPHEN 325 MG TAB PO PRN ×2 (11:35→21:16)
--- NOTE | 2020-03-30 11:59 | Billing Data ---
Date of Service March 30, 2020 Coding Level of Care Code 96068 Subseq Hosp Care Lvl 3
[2020-03-30] MEDS: LORazepam 0.5 MG TAB PO PRN (12:25)
--- NOTE | 2020-03-30 13:00 | Electrocardiogram Report ---
Test Reason : Blood Pressure : / mmHG Vent. Rate : 066 BPM Atrial Rate : 066 BPM P-R Int : 190 ms QRS Dur : 152 ms QT Int : 474 ms P-R-T Axes : 054 -39 110 degrees QTc Int : 496 ms Normal sinus rhythm Left axis deviation Left bundle branch block Abnormal ECG When compared with ECG of 29-MAR-2020 14:21, No significant change was found Confirmed by Darell Mann ([id number]) on 03/30/2020 12:59:56 PM Referred By: Raji Patino Confirmed By:Osbaldo Mann
--- NOTE | 2020-03-30 19:43 | Hospitalist Progress Note ---
Date of Service March 30, 2020 Assessment & Plan (1) Hypertensive urgency: (2) LBBB (left bundle branch block): Per admitting service notes: This is a 54 year old M who has a significant PMH of HTN, HLD, PRIMITIVO, less than 60% stenosis of R renal artery, GERD, depression who presents to ED at referral of cardiology secondary to hypertensive urgency. In ED patient did receive two 10 mg doses of IV hydralazine. Upon arrival patient's blood pressure was 205/103, HR 54. After administration of 1st 10mg dose of IV hydralazine it did reduce to 169/92, HR 70s. This was short-lived as he returned to 200s/100s. He received a second dose of the hydralazine without much improvement. Discussed case with cardiology Dr. Patino who recommends admission to ICU for nicardpine gtt. Admit to ICU start nicardipine gtt D/C metoprolol and diltiazem start coreg 12.5mg po bid, 1st dose tonight start losartan 50mg daily, 1st dose tonight CT head w/o contrast given THOMAS and hypertensive urgency cycle troponins due to chest pain, but does appear to be musculoskeletal component echocardiogram - last 01/2020 EF 55%, mild LVH, Grade 1 DD known LBBB - per cardiology likely to undergo cath on Friday but need to get BP better controlled 03/30/2020 Troponins negative Echocardiogram ejection fraction 55 to 60%, abnormal septal wall motion consistent with LBBB pattern, otherwise normal wall motion, grade 1 diastolic dysfunction Weaned off nicardipine drip Now transitioned to p.o. losartan, carvedilol Amlodipine discontinued as patient reports severe edema with amlodipine use in the past Blood Pressure improving Continue to monitor closely For cardiac catheterization tomorrow (3) Hypokalemia: Resolved (4) Leucocytosis: Resolved No signs of infection (5) HLD (hyperlipidemia): continue statin (6) PRIMITIVO (obstructive sleep apnea): CPAP at HS (7) Renal artery stenosis: Follows nephrology and has seen vascular < 60% of R renal artery stenosis continue ASA, statin (8) GERD (gastroesophageal reflux disease): continue PPI (9) DVT prophylaxis: SCD/TEDS for now until BP under better control Disposition: Anticipate discharge to home medically stable Follow up: PCP Dr. Duff upon discharge Admission and Anticipated Discharge Date Admission Date: March 29, 2020 Subjective Follow-up for hypertensive urgency, chest pain Seen sitting up in bed, comfortable, not in distress States he feels better today compared to yesterday Headache recurred this morning but resolved since then Chest pain-free Denies dizziness, shortness of breath, abdominal pain, nausea, palpitations Admits to having anxiety, secondary to medical condition Denies having any major stressors at home or at work No other symptoms Review of Systems Review of Systems: All systems reviewed & are unremarkable except as noted in Subjective Physical Exam Physical Exam: General- oriented x 3, not in distress, speaks in sentences with no effort or accessory muscle use Eyes- anicteric Neck- no JVD Lungs- clear breath sounds bilaterally, no rales/wheezes Heart- normal rate, regular rhythm; no murmurs Abdomen- normal bowel sounds, nondistended, soft, nontender Extremities- no pretibial edema, no calf tenderness Neuro- alert, oriented x 3; no gross focal neurologic deficits Skin- warm & dry Results & Data Results & Data ([facility]) Vital Signs (Past 12 Hours) Vital Signs Temp Pulse Resp BP Pulse Ox 03/30/20 16:45 37.2 C 81 24 98 03/30/20 16:30 75 20 173/98 H 98 03/30/20 16:15 67 19 97 03/30/20 16:00 71 17 98 03/30/20 15:45 75 20 97 03/30/20 15:43 70 03/30/20 15:30 73 18 177/95 H 98 03/30/20 15:15 88 29 H 96 03/30/20 15:00 69 19 97 03/30/20 14:45 72 19 96 03/30/20 14:30 75 18 161/87 H 96 03/30/20 14:15 67 15 95 03/30/20 14:00 67 16 97 03/30/20 13:45 70 18 96 03/30/20 13:30 76 20 151/94 H 97 03/30/20 13:27 75 21 97 03/30/20 13:00 71 18 95 03/30/20 12:45 73 21 97 03/30/20 12:30 81 15 133/84 96 03/30/20 12:15 75 20 95 03/30/20 12:00 75 15 96 03/30/20 11:45 79 19 95 03/30/20 11:30 79 19 159/96 H 95 03/30/20 11:15 75 17 94 03/30/20 11:00 78 16 95 03/30/20 10:45 83 17 95 03/30/20 10:30 79 22 170/89 H 98 03/30/20 10:15 70 13 96 03/30/20 10:03 75 97 03/30/20 09:31 83 25 H 109/103 H 03/30/20 09:30 79 18 03/30/20 09:15 72 16 03/30/20 09:00 80 20 03/30/20 08:45 81 22 03/30/20 08:30 84 20 168/88 H 03/30/20 08:15 79 17 03/30/20 08:00 77 18 03/30/20 07:45 37.2 C 99 H 24 Laboratory Results Laboratory Results - last 24 hr 03/29/20 03/29/20 03/29/20 19:30 20:48 20:49 WBC RBC Hgb Hct MCV MCH MCHC RDW Std Deviation RDW Coeff of Cindi Plt Count MPV Immature Gran % (Auto) Neut % (Auto) Lymph % (Auto) [place] % (Auto) Eos % (Auto) Baso % (Auto) Neut # (Auto) Lymph # (Auto) [place] # (Auto) Eos # (Auto) Baso # (Auto) Immature Gran # (Auto) Sodium Potassium Chloride Carbon Dioxide Anion Gap BUN Creatinine Est Cr Clr Drug Dosing Est GFR ( Amer) Est GFR (Non-Af Amer) BUN/Creatinine Ratio Glucose POC Glucose 174 H Calcium Troponin I 0.053 H* Nasal Screen MRSA (PCR) Negative 03/30/20 03/30/20 03/30/20 02:36 02:36 05:48 WBC 9.98 RBC 4.56 L Hgb 13.9 L Hct 40.0 L MCV 87.7 MCH 30.5 MCHC 34.8 RDW Std Deviation 42.3 RDW Coeff of Cindi 13.3 Plt Count 290 MPV 9.6 Immature Gran % (Auto) 0.3 Neut % (Auto) 77.1 Lymph % (Auto) 12.6 [place] % (Auto) 8.9 Eos % (Auto) 0.8 Baso % (Auto) 0.3 Neut # (Auto) 7.69 H Lymph # (Auto) 1.26 [place] # (Auto) 0.89 H Eos # (Auto) 0.08 Baso # (Auto) 0.03 Immature Gran # (Auto) 0.03 H Sodium 140 Potassium 3.5 Chloride 106 Carbon Dioxide 30 Anion Gap 4.0 BUN 20 H Creatinine 1.32 Est Cr Clr Drug Dosing 65.5 Est GFR ( Amer) 71.4 Est GFR (Non-Af Amer) 61.6 BUN/Creatinine Ratio 14.9 Glucose 98 POC Glucose Calcium 8.8 Troponin I 0.171 H* 0.093 H* Nasal Screen MRSA (PCR) 03/30/20 03/30/20 07:35 11:08 WBC RBC Hgb Hct MCV MCH MCHC RDW Std Deviation RDW Coeff of Cindi Plt Count MPV Immature Gran % (Auto) Neut % (Auto) Lymph % (Auto) [place] % (Auto) Eos % (Auto) Baso % (Auto) Neut # (Auto) Lymph # (Auto) [place] # (Auto) Eos # (Auto) Baso # (Auto) Immature Gran # (Auto) Sodium Potassium Chloride Carbon Dioxide Anion Gap BUN Creatinine Est Cr Clr Drug Dosing Est GFR ( Amer) Est GFR (Non-Af Amer) BUN/Creatinine Ratio Glucose POC Glucose 105 H 107 H Calcium Troponin I Nasal Screen MRSA (PCR)
[2020-03-30] MEDS: ROSUVASTATIN CALCIUM 5 MG TAB PO SCH (20:20)
--- NOTE | 2020-03-31 07:48 | Electrocardiogram Report ---
Test Reason : Blood Pressure : / mmHG Vent. Rate : 066 BPM Atrial Rate : 066 BPM P-R Int : 176 ms QRS Dur : 150 ms QT Int : 460 ms P-R-T Axes : 035 -40 118 degrees QTc Int : 482 ms Normal sinus rhythm Possible Left atrial enlargement Left axis deviation Left bundle branch block Abnormal ECG When compared with ECG of 30-MAR-2020 06:32, No significant change was found Confirmed by Darell Mann ([id number]) on 03/31/2020 7:48:06 AM Referred By: Raji Patino Confirmed By:Osbaldo Mann
[2020-03-31] MEDS: LORazepam 0.5 MG TAB PO PRN ×2 (07:59→13:35)
[2020-03-31] MEDS: carvediloL 12.5 MG TAB PO SCH ×2 (07:59→21:04)
[2020-03-31] MEDS: LOSARTAN POTASSIUM 50 MG TAB PO SCH ×2 (07:59→21:04)
[2020-03-31] MEDS: MULTIVITAMIN TAB PO SCH (08:00)
[2020-03-31] MEDS: ASPIRIN 81 MG ECTAB PO SCH (08:00)
[2020-03-31] MEDS: PANTOprazole 40 MG TAB PO SCH (08:00)
--- NOTE | 2020-03-31 09:14 | Cardiology Progress Note ---
Date of Service March 31, 2020 Assessment & Plan (1) Hypertensive urgency: (2) PRIMITIVO (obstructive sleep apnea): (3) Headache: (4) Renal artery stenosis: (5) GERD (gastroesophageal reflux disease): (6) LBBB (left bundle branch block): Currently this a.m. he states he is feeling a little bit better. Anxiety improved with Ativan Still little anxious but overall feeling better. I do believe there is a significant anxiety component to his blood pressure at this point. Tolerating current regimen of carvedilol and losartan well. We will add felodipine this a.m. as well. Continue aspirin and rosuvastatin. For cardiac catheterization this a.m. Further recommendations to follow. Should the cardiac catheterization come back unremarkable and he remained asymptomatic with blood pressures relatively well controlled would be okay to discharge to home from a cardiac standpoint this p.m. or more likely tomorrow in the a.m. Admission and Anticipated Discharge Date Admission Date: March 29, 2020 Subjective Patient seen and examined, chart reviewed. States he is feeling well this morning. Remained anxious overnight but anxiety relieved with as needed Ativan. Denies any further chest pain or headaches. Denies shortness of breath, palpitations, lightheadedness, dizziness or syncope. Telemetry reviewed: Sinus rhythm without arrhythmia or significant ectopy. Underlying left bundle branch block pattern Review of Systems Review of Systems: All systems reviewed & are unremarkable except as noted in HPI & below Physical Exam Physical Exam: General: Awake, alert and oriented x 3. No acute distress. HEENT: Normocephalic, atraumatic. Pupils equal, round and reactive to light and accommodation. Extraocular muscles are intact. Anicteric sclera. Moist mucous membranes. Neck: No JVD. No bruit. Cardiovascular: Regular. Positive S-4. Normal S-1 and S-2. No S-3. No murmurs or rubs. Pulmonary: Clear to auscultation B/L. No rales, rhonchi or wheezing Abdomen: Bowel sounds x 4, soft. No rebound, guarding or tenderness. No organomegaly. Extremities: No clubbing, cyanosis or edema. +2 pedal pulses bilaterally. Skin: Warm and dry. Results & Data ([facility]) Vital Signs (Past 12 Hours) Vital Signs Pulse Resp BP 03/31/20 05:29 64 24 172/100 H 03/31/20 04:00 55 L 13 03/31/20 03:00 57 L 13 03/31/20 02:00 58 L 14 03/31/20 01:00 57 L 15 03/31/20 00:05 56 L 13 168/98 H 03/31/20 00:00 57 L 13 03/30/20 23:00 61 13 03/30/20 22:00 61 19 (1) Headache Headache chronicity pattern: acute headache Headache type: unspecified Intractability: intractable Qualified Code(s): R51.9 - Headache, unspecified
[2020-03-31] MEDS ORDERED: FELODIPINE 5 MG TABCR PO SCH (09:30)
[2020-03-31 10:16] LABS: Basophils # (auto) 0.02 K/uL (0-0.2); Basophils % (auto) 0.2 %; Eosinophils # (auto) 0.13 K/uL (0-0.5); Eosinophils % (auto) 1.4 %; Hematocrit (blood only) 43.9 % (42-52); Immature Granulocytes # (auto) 0.02 K/uL (0.00-0.02); Immature Granulocytes % (auto) 0.2 %; Lymphocytes # (auto) 1.08 K/uL (1.2-3.4); Lymphocytes % (auto) 11.5 %; Mean Corpuscular Hemoglobin 30.2 pg (25-34); Mean Corpuscular Hgb Conc 34.2 g/dL (32-36); Mean Corpuscular Volume 88.5 fL (80-100); Mean Platelet Volume 9.4 fL (7.4-10.4); Monocytes # (auto) 0.57 K/uL (0.11-0.59); Monocytes % (auto) 6.1 %; Neutrophils # (auto) 7.54 K/uL (1.4-6.5); Neutrophils % (auto) 80.6 %; Platelet Count 257 K/uL (130-400); RDW Coefficient of Variation 13.3 % (11.5-14.5); RDW Standard Deviation 43.1 fL (36.4-46.3); Red Blood Count 4.96 M/uL (4.7-6.1); White Blood Count 9.36 K/uL (4.8-10.8)
[2020-03-31] MEDS ORDERED: niCARdipine HCL INJ 2.5 MG/ML 10 ML AMP ONE (10:38)
[2020-03-31] MEDS ORDERED: HEPARIN (PORCINE) 1000 UNIT/ML 10 ML (CATH LAB USE ONLY) ONE (10:38)
[2020-03-31] MEDS ORDERED: fentaNYL citrate 100 MCG/2 ML VIAL ONE (10:39)
[2020-03-31] MEDS ORDERED: MIDAZOLAM HCL 1 MG/ML 2ML VIAL ONE (10:39)
[2020-03-31] MEDS ORDERED: NITROGLYCERIN/D5W 100MCG/ML 20ML SYR ONE (10:39)
[2020-03-31 10:42] LABS: BUN Creatinine Ratio 16.2 (10-20); Calcium 9.1 mg/dl (8.5-10.1); Creatinine Clr Calc Pharmacy 73.1 ml/min; Est GFR (African American) 74.1; Est GFR (Non-African American) 63.9; Potassium 3.9 mmol/L (3.5-5.1)
--- NOTE | 2020-03-31 10:58 | History & Physical Bridge Note ---
Date of Service March 31, 2020 History & Physical Bridge Note I have examined the patient, reviewed the History & Physical and in the interval since the performance of the History & Physical I have noted the following changes of clinical significance: no changes noted
--- NOTE | 2020-03-31 10:59 | Pre Anesthesia Assessment ---
Date of Service March 31, 2020 Pre Sedation Assessment Vital Signs Temp Pulse Pulse Resp BP BP Pulse Ox 03/31/20 08:00 37.2 C 68 68 19 184/106 H 97 03/31/20 05:29 64 24 172/100 H 03/31/20 04:00 55 L 13 03/31/20 03:00 57 L 13 03/31/20 02:00 58 L 14 03/31/20 01:00 57 L 15 03/31/20 00:05 56 L 13 168/98 H 03/31/20 00:00 57 L 13 03/30/20 23:00 61 13 03/30/20 22:00 61 19 03/30/20 21:00 63 17 03/30/20 20:00 75 18 96 03/30/20 19:31 76 18 154/95 H 98 03/30/20 19:00 71 18 96 03/30/20 18:30 81 19 168/95 H 97 03/30/20 18:00 72 19 96 03/30/20 17:31 76 17 169/99 H 98 03/30/20 17:00 72 16 98 03/30/20 16:45 37.2 C 81 24 98 03/30/20 16:30 75 20 173/98 H 98 03/30/20 16:15 67 19 97 03/30/20 16:00 71 17 98 03/30/20 15:45 75 20 97 03/30/20 15:43 70 03/30/20 15:30 73 18 177/95 H 98 03/30/20 15:15 88 29 H 96 03/30/20 15:00 69 19 97 03/30/20 14:45 72 19 96 03/30/20 14:30 75 18 161/87 H 96 03/30/20 14:15 67 15 95 03/30/20 14:00 67 16 97 03/30/20 13:45 70 18 96 03/30/20 13:30 76 20 151/94 H 97 03/30/20 13:27 75 21 97 03/30/20 13:00 71 18 95 03/30/20 12:45 73 21 97 03/30/20 12:30 81 15 133/84 96 03/30/20 12:15 75 20 95 03/30/20 12:00 75 15 96 03/30/20 11:45 79 19 95 03/30/20 11:30 79 19 159/96 H 95 03/30/20 11:15 75 17 94 03/30/20 11:00 78 16 95 Cardiovascular RRR, no murmur, no edema Respiratory normal respiratory effort, lungs clear to auscultation Pre-Sedation Airway Assessment Smoking Status: Never smoker Short, Thick Neck: No Thyromental Distance: > or= 3.5 Finger Breadths Oral Cavity: + WNL Mallampati Class: IV ASA: ASA3 Procedure Planning Contraindications for Sedation: none Current Medications Reviewed: Yes Notes The planned sedation has been discussed with the patient. Informed Consent was obtained. I have identified the patient, determined the appropriateness of sedation and have assessed the patient immediately prior to the procedure. All medicine(s) and interventions are by my order.
[2020-03-31] MEDS ORDERED: METOPROLOL TARTRATE 1 MG/ML VIAL IV ONE (11:46)
--- NOTE | 2020-03-31 11:56 | Post Anesthesia Assessment ---
Date of Service March 31, 2020 Post Sedation Assessment Vital Signs Temp Pulse Pulse Resp BP BP Pulse Ox 03/31/20 11:50 68 190/96 H 03/31/20 08:00 37.2 C 68 68 19 184/106 H 97 03/31/20 05:29 64 24 172/100 H 03/31/20 04:00 55 L 13 03/31/20 03:00 57 L 13 03/31/20 02:00 58 L 14 03/31/20 01:00 57 L 15 03/31/20 00:05 56 L 13 168/98 H 03/31/20 00:00 57 L 13 03/30/20 23:00 61 13 03/30/20 22:00 61 19 03/30/20 21:00 63 17 03/30/20 20:00 75 18 96 03/30/20 19:31 76 18 154/95 H 98 03/30/20 19:00 71 18 96 03/30/20 18:30 81 19 168/95 H 97 03/30/20 18:00 72 19 96 03/30/20 17:31 76 17 169/99 H 98 03/30/20 17:00 72 16 98 03/30/20 16:45 37.2 C 81 24 98 03/30/20 16:30 75 20 173/98 H 98 03/30/20 16:15 67 19 97 03/30/20 16:00 71 17 98 03/30/20 15:45 75 20 97 03/30/20 15:43 70 03/30/20 15:30 73 18 177/95 H 98 03/30/20 15:15 88 29 H 96 03/30/20 15:00 69 19 97 03/30/20 14:45 72 19 96 03/30/20 14:30 75 18 161/87 H 96 03/30/20 14:15 67 15 95 03/30/20 14:00 67 16 97 03/30/20 13:45 70 18 96 03/30/20 13:30 76 20 151/94 H 97 03/30/20 13:27 75 21 97 03/30/20 13:00 71 18 95 03/30/20 12:45 73 21 97 03/30/20 12:30 81 15 133/84 96 03/30/20 12:15 75 20 95 03/30/20 12:00 75 15 96 Recovery Score Activity: Moves 4 extremities Respiration: Deep Breath/Cough Circulation: +/-20% PreAnes Value Consciousness: Fully Awake Oxygen Saturation: > 92% On Room Air Discharge Sedation Level of Care: Phase I Post Sedation Plan On clinical assessment, the patient appears to have tolerated the sedation without complications. Patient is recovering as anticipated. Patient will continue to be monitored by nursing and may be discharged when sedation discharge criteria are met per below protocol. Upon Completions of procedure up to 15 minutes continue every 5 minute vital signs and the P.A.R. score; then discharge to a Phase I or Fast Track to Phase II per the following guidelines: * Discharge Patient to appropriate Phase II area if PAR is 8 or greater or return to pre- procedure baseline. The post - procedure orders will be as directed. * If PAR score is less than 8 or not return to pre-procedure baseline then patient will follow Phase I monitoring till PAR is reached for Phase II. The Phase I may be done in procedure room or may call to secure a Phase I area. * If naloxone or flumazenil are used for reversal, hold in Phase I for continued monitoring from when last reversal dose was given for a minimum of 60 minutes or longer pending the nurse and/or physician discretion of patient condition before discharge to Phase II. Please call the Sedation Physician to re-evaluate and complete post-note for discharge to Phase II area. Do NOT discharge from procedure sedation or Phase 1 until post- sedation evaluation note is complete by procedure /sedation MD Sedation Discharge Instructions to be given to the patient at discharge to home.
[2020-03-31] MEDS ORDERED: ACETAMINOPHEN 325 MG TAB PO PRN (11:57)
[2020-03-31] MEDS ORDERED: SODIUM CHLORIDE 0.9% 500 ML IV PRN (11:57)
--- NOTE | 2020-03-31 12:01 | Cardiac Catheterization ---
Cardiac Cath Procedure Brief Procedure Date March 31, 2020 Pre-Procedure Diagnosis Pre-Procedure Diagnosis: Cardiothoracic Symptom (LBBB, hypertensive urgency, elevated troponin) AUC Score AUC Score: 8 Post-Procedure Diagnosis Post-Procedure Diagnosis: Mild CAD Procedure(s) Performed Procedure(s) Performed: Coronary Angiography, Left Heart Cath and LV Angiography Physician'S Aide José Miguel Ward MD Hogshead Builder(s) Aleksandra Asencio Estimated Blood Loss Estimated Blood Loss: <15cc Medication(s) Medication(s): Fentanyl (25 mcg IV), Heparin (5000 units IV), Lidocaine 1% (Local infiltration access site), Nicardipine (250 mcg intra-arterial after arterial sheath insertion and prior to sheath removal) and Versed (2 mg IV) Preliminary Findings Large-caliber left dominant coronary anatomy Mild luminal irregularities with a discrete 40 to 50% smooth narrowing mid left anterior descending Normal left ventricular systolic function EF 65% Herson systolic hypertension with elevated left end-diastolic pressure greater than 30 Recommendations Recommendations: Medical Therapy and/or Counseling Specimens Specimens: None Fluids (cc crystalloids) Fluids (cc crystalloids): 85 Anesthesia Start time: 1114, stop time: 1146 Procedural Complication(s) None Disposition PCU
--- NOTE | 2020-03-31 12:16 | Cardiac Catheterization ---
Cardiac Cath Procedure Full Procedure Date March 31, 2020 Pre-Procedure Diagnosis Pre-Procedure Diagnosis: Cardiothoracic Symptom (LBBB, hypertensive urgency, elevated troponin) AUC Score AUC Score: 8 Post-Procedure Diagnosis Post-Procedure Diagnosis: Mild CAD Procedure(s) Performed Procedure(s) Performed: Coronary Angiography, Left Heart Cath and LV Angiography Bingo Floater José Miguel Ward MD Hip Hop Dancer(s) Aleksandra Asencio Estimated Blood Loss Estimated Blood Loss: <15cc Medication(s) Medication(s): Fentanyl (25 mcg IV), Heparin (5000 units IV), Lidocaine 1% (Local infiltration access site), Nicardipine (250 mcg intra-arterial after arterial sheath insertion and prior to sheath removal), Nitroglycerin (200 mcg intra-arterial prior to sheath removal) and Versed (2 mg IV) Medication(s): Metoprolol 5 mg IV for additional blood pressure management Summary of Findings Large-caliber left dominant coronary anatomy Mild luminal irregularities with a discrete 40 to 50% smooth narrowing mid left anterior descending Normal left ventricular systolic function EF 65% Marked systolic hypertension with elevated left end-diastolic pressure greater than 30 Hemodynamics Rest Ao:: 204/112/148 Final Ao: 206/108/146 LV: 205/17/32 Recommendations Recommendations: Medical Therapy and/or Counseling Specimens Specimens: None Radiation Exposure (mGy) 776 Contrast (mls) 100 Fluids (cc crystalloids) Fluids (cc crystalloids): 85 Anesthesia Start time: 1114, stop time: 1146 Procedural Complication(s) None Disposition PCU I attest to the content of the Intraoperative Record and any orders documented therein. Any exceptions are noted below. 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 Cardiac Status Clinical evaluation leading to the procedure 54-year-old male with known longstanding hypertension and chronic left bundle branch block admitted with marked hypertensive urgency, elevated troponin CAD Presenation: No Sxs, No angina Anginal Classification: No Symptoms Cardiogenic Shock within 24 Hours: No Cardiac Arrest within 24 Hours: No Imaging Studies Past 6 Months: Yes Stress Studies Past 6 Months: No Standard Exercise Test: No Stress Echocardiogram: No Stress Testing w/SPECT MPI: No Cardiac CTA: No Coronary Anatomy Dominant: Left Left Main (% Stenosis): Normal (Very short with near separate origins of the left anterior descending and left circumflex) LAD (% Stenosis): Mid (Type III vessel with mild luminal irregularities and a discrete 50% mid vessel stenosis between D1 and D2) D1 (% Stenosis): Normal D2 (% Stenosis): Normal Circumflex (% Stenosis): Mid (Mild irregularities) OM1 (% Stenosis): Normal (Very large caliber bifurcating vessel) L PL1 (% Stenosis): Normal L PL2 (% Stenosis): Normal L PDA (% Stenosis): Normal RCA (% Stenosis): Normal (Small nondominant vessel consisting of a conus and sinoatrial branch and a single RV branch) Left Ventricular Angiography EF (%): 60 Diagnostic Physicians Name: José Miguel Ward MD Status: Urgent Closure Device Percutaneous Entry Location: Radial Closure Device: Radial Band Recommendations: Medical Therapy and/or Counseling
[2020-03-31] MEDS: SODIUM CHLORIDE 0.9% 1000ML 1,000 ML IV SCH (12:19)
[2020-03-31] MEDS: ACETAMINOPHEN 325 MG TAB PO PRN (13:35)
[2020-03-31] MEDS ORDERED: cloNIDine HCL 0.1 MG TAB PO ONE (13:59)
--- NOTE | 2020-03-31 20:04 | Hospitalist Progress Note ---
Date of Service March 31, 2020 Assessment & Plan (1) Hypertensive urgency: (2) LBBB (left bundle branch block): Per admitting service notes: This is a 54 year old M who has a significant PMH of HTN, HLD, PRIMITIVO, less than 60% stenosis of R renal artery, GERD, depression who presents to ED at referral of cardiology secondary to hypertensive urgency. In ED patient did receive two 10 mg doses of IV hydralazine. Upon arrival patient's blood pressure was 205/103, HR 54. After administration of 1st 10mg dose of IV hydralazine it did reduce to 169/92, HR 70s. This was short-lived as he returned to 200s/100s. He received a second dose of the hydralazine without much improvement. Discussed case with cardiology Dr. Patino who recommends admission to ICU for nicardpine gtt. Admit to ICU start nicardipine gtt D/C metoprolol and diltiazem start coreg 12.5mg po bid, 1st dose tonight start losartan 50mg daily, 1st dose tonight CT head w/o contrast given THOMAS and hypertensive urgency cycle troponins due to chest pain, but does appear to be musculoskeletal component echocardiogram - last 01/2020 EF 55%, mild LVH, Grade 1 DD known LBBB - per cardiology likely to undergo cath on Friday but need to get BP better controlled 03/31/2020 Troponins negative Echocardiogram ejection fraction 55 to 60%, abnormal septal wall motion consistent with LBBB pattern, otherwise normal wall motion, grade 1 diastolic dysfunction Weaned off nicardipine drip Now transitioned to p.o. losartan, carvedilol, felodipine Amlodipine discontinued as patient reports severe edema with amlodipine use in the past Blood Pressure still labile Status post cardiac cath- Large-caliber left dominant coronary anatomy Mild luminal irregularities with a discrete 40 to 50% smooth narrowing mid left anterior descending Normal left ventricular systolic function EF 65% Marked systolic hypertension with elevated left end-diastolic pressure greater than 30 Continue to monitor closely (3) Anxiety: Likely contributing to elevated blood pressure Denies any major stressors at home or at work On as needed Ativan History of depression Consult psychiatry service (4) Hypokalemia: Resolved (5) Leucocytosis: Resolved No signs of infection (6) HLD (hyperlipidemia): continue statin (7) PRIMITIVO (obstructive sleep apnea): CPAP at --Will need to have CPAP arranged on discharge (8) Renal artery stenosis: Follows nephrology and has seen vascular < 60% of R renal artery stenosis continue ASA, statin (9) GERD (gastroesophageal reflux disease): continue PPI (10) DVT prophylaxis: SCD/TEDS for now until BP under better control Disposition: Anticipate discharge to home when medically stable Follow up: PCP Dr. Duff upon discharge Admission and Anticipated Discharge Date Admission Date: March 29, 2020 Subjective Follow-up for hypertensive emergency, chest pain, etc. Seen resting in bed, comfortable, not in distress Sitting up, just had dinner States he feels improved overall Chest pain-free, no headache, no shortness of breath Still has some anxiety today, denies depression No other symptom Review of Systems Review of Systems: All systems reviewed & are unremarkable except as noted in Subjective Physical Exam Physical Exam: General- oriented x 3, not in distress, speaks in sentences with no effort or accessory muscle use Eyes- anicteric Neck- no JVD Lungs- clear breath sounds bilaterally Heart- normal rate, regular rhythm; no murmurs Abdomen- normal bowel sounds, nondistended, soft, nontender Extremities- no pretibial edema, no calf tenderness Right wrist-no hematoma/erythema/warmth/tenderness Neuro- alert, oriented x 3; no gross focal neurologic deficits Skin- warm & dry Psych-normal affect, mood Results & Data Results & Data ([facility]) Vital Signs (Past 12 Hours) Vital Signs Temp Pulse Pulse Resp BP BP Pulse Ox 03/31/20 16:00 64 14 03/31/20 15:50 67 15 142/81 H 03/31/20 15:45 67 14 03/31/20 15:30 68 15 03/31/20 15:15 67 16 03/31/20 15:00 73 18 03/31/20 14:45 72 16 03/31/20 14:43 71 17 153/82 H 03/31/20 14:30 72 16 03/31/20 14:28 68 15 155/89 H 03/31/20 14:15 64 15 03/31/20 14:13 63 15 150/88 H 03/31/20 14:00 67 15 144/96 H 03/31/20 13:58 65 15 144/96 H 03/31/20 13:45 71 19 03/31/20 13:43 65 17 160/104 H 03/31/20 13:30 70 15 03/31/20 13:28 85 13 177/102 H 03/31/20 13:15 67 19 03/31/20 13:13 71 17 178/94 H 03/31/20 13:05 73 19 171/93 H 03/31/20 13:00 74 16 03/31/20 12:57 74 03/31/20 12:54 73 15 169/99 H 03/31/20 12:45 78 20 03/31/20 12:33 66 18 177/109 H 03/31/20 12:30 70 15 177/109 H 03/31/20 12:15 59 L 20 97 03/31/20 12:13 36.7 C 171/101 H 96 03/31/20 11:50 68 190/96 H 03/31/20 08:00 37.2 C 68 68 19 184/106 H 97 Laboratory Results Laboratory Results - last 24 hr 03/31/20 03/31/20 10:06 10:06 WBC 9.36 RBC 4.96 Hgb 15.0 Hct 43.9 MCV 88.5 MCH 30.2 MCHC 34.2 RDW Std Deviation 43.1 RDW Coeff of Cindi 13.3 Plt Count 257 MPV 9.4 Immature Gran % (Auto) 0.2 Neut % (Auto) 80.6 Lymph % (Auto) 11.5 [place] % (Auto) 6.1 Eos % (Auto) 1.4 Baso % (Auto) 0.2 Neut # (Auto) 7.54 H Lymph # (Auto) 1.08 L [place] # (Auto) 0.57 Eos # (Auto) 0.13 Baso # (Auto) 0.02 Immature Gran # (Auto) 0.02 Sodium 140 Potassium 3.9 Chloride 106 Carbon Dioxide 30 Anion Gap 4.0 BUN 21 H Creatinine 1.28 Est Cr Clr Drug Dosing 73.1 Est GFR ( Amer) 74.1 Est GFR (Non-Af Amer) 63.9 BUN/Creatinine Ratio 16.2 Glucose 104 H Calcium 9.1
[2020-03-31] MEDS ORDERED: cloNIDine HCL 0.1 MG TAB PO SCH (21:00)
[2020-03-31] MEDS: ROSUVASTATIN CALCIUM 5 MG TAB PO SCH (21:05)
[2020-04-01] MEDS: SODIUM CHLORIDE 0.9% 1000ML 1,000 ML IV SCH (02:47)
[2020-04-01 04:42] LABS: BUN Creatinine Ratio 17.3 (10-20); Calcium 8.7 mg/dl (8.5-10.1); Creatinine Clr Calc Pharmacy 65.5 ml/min; Est GFR (African American) 64.8; Est GFR (Non-African American) 55.9; Potassium 3.8 mmol/L (3.5-5.1)
--- NOTE | 2020-04-01 19:43 | Hospitalist Progress Note ---
Date of Service April 01, 2020 Assessment & Plan (1) Hypertensive urgency: (2) LBBB (left bundle branch block): Per admitting service notes: This is a 54 year old M who has a significant PMH of HTN, HLD, PRIMITIVO, less than 60% stenosis of R renal artery, GERD, depression who presents to ED at referral of cardiology secondary to hypertensive urgency. In ED patient did receive two 10 mg doses of IV hydralazine. Upon arrival patient's blood pressure was 205/103, HR 54. After administration of 1st 10mg dose of IV hydralazine it did reduce to 169/92, HR 70s. This was short-lived as he returned to 200s/100s. He received a second dose of the hydralazine without much improvement. Discussed case with cardiology Dr. Patino who recommends admission to ICU for nicardpine gtt. Admit to ICU start nicardipine gtt D/C metoprolol and diltiazem start coreg 12.5mg po bid, 1st dose tonight start losartan 50mg daily, 1st dose tonight CT head w/o contrast given THOMAS and hypertensive urgency cycle troponins due to chest pain, but does appear to be musculoskeletal component echocardiogram - last 01/2020 EF 55%, mild LVH, Grade 1 DD known LBBB - per cardiology likely to undergo cath on Friday but need to get BP better controlled 03/31/2020 Troponins negative Echocardiogram ejection fraction 55 to 60%, abnormal septal wall motion consistent with LBBB pattern, otherwise normal wall motion, grade 1 diastolic dysfunction Weaned off nicardipine drip Now transitioned to p.o. losartan, carvedilol, felodipine Amlodipine discontinued as patient reports severe edema with amlodipine use in the past Blood Pressure still labile Status post cardiac cath- Large-caliber left dominant coronary anatomy Mild luminal irregularities with a discrete 40 to 50% smooth narrowing mid left anterior descending Normal left ventricular systolic function EF 65% Marked systolic hypertension with elevated left end-diastolic pressure greater than 30 04/01/20 Cleared for discharge by cardiology service Discharged on: Felodipine, carvedilol, losartan Follow-up with site engineer as an outpatient (3) Anxiety: Likely contributing to elevated blood pressure History of depression Psychiatry service consulted, recommend sertraline 50 mg daily Follow-up with PCP as an outpatient Refer to psychiatrist (4) Hypokalemia: Resolved (5) Leucocytosis: Resolved No signs of infection (6) HLD (hyperlipidemia): continue statin (7) PRIMITIVO (obstructive sleep apnea): CPAP at HS --Will need to have CPAP arranged on discharge (8) Renal artery stenosis: Follows nephrology and has seen vascular < 60% of R renal artery stenosis continue ASA, statin (9) GERD (gastroesophageal reflux disease): continue PPI (10) DVT prophylaxis: SCD/TEDS Disposition: Anticipate discharge to home when medically stable Follow up: PCP Dr. Duff upon discharge Follow-up with cardiology service in 2-3 weeks Admission and Anticipated Discharge Date Admission Date: March 29, 2020 Subjective Follow-up for hypertensive emergency, chest pain, etc. Sitting up in bed side chair, comfortable, not in distress States he feels much better overall Denies chest pain, headache, dizziness, palpitation No other symptoms States that he is ready and would like to be discharged today Review of Systems Review of Systems: All systems reviewed & are unremarkable except as noted in Subjective Physical Exam Physical Exam: General- oriented x 3, not in distress, speaks in sentences with no effort or accessory muscle use Eyes- anicteric Neck- no JVD Lungs- clear breath sounds bilaterally Heart- normal rate, regular rhythm; no murmurs Abdomen- normal bowel sounds, nondistended, soft, nontender Extremities- no pretibial edema, no calf tenderness Right wrist: No erythema/edema/warmth Neuro- alert, oriented x 3; no gross focal neurologic deficits Skin- warm & dry Psych: Normal mood and affect Results & Data Results & Data ([facility]) Laboratory Results Laboratory Results - last 24 hr 04/01/20 04:02 Sodium 139 Potassium 3.8 Chloride 106 Carbon Dioxide 28 Anion Gap 5.0 BUN 25 H Creatinine 1.43 H Est Cr Clr Drug Dosing 65.5 Est GFR ( Amer) 64.8 Est GFR (Non-Af Amer) 55.9 BUN/Creatinine Ratio 17.3 Glucose 100 H Calcium 8.7
--- NOTE | 2020-04-01 19:43 | Discharge Summary ---
Date of Service April 01, 2020 Admission HPI Per Admitting Provider This is a 54 year old M who has a significant PMH of HTN, HLD, PRIMITIVO, less than 60% stenosis of R renal artery, GERD, depression who presents to ED at referral of cardiology secondary to hypertensive urgency.Patient complains of headache for the past month. It comes and goes daily. Mostly distributed in the occipital region. Described as a dull ache. Nothing makes it better or worse. He also describes headache behind eyes but associated this to straining looking at computer screen at work. He also admits to subtle chest pressure which is worse with arm or torso movement. He states he has been lifting heavy boxes for moving and attributed to this. 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 Currently he denies any chest pain or shortness of breath at rest. He denies any known sick contacts, recent fever, chills, sweats, dizziness, syncope, cough, hemoptysis, palp itations, shortness of breath at rest, nausea, vomiting, abdominal pain, change in bowel or urinary habits. He states he was hospitalized last summer secondary to hypertension and had been doing well throughout January. He then noticed a return of his headaches and has been monitoring his BP at home. It has been consistently systolically 160s over 190s. He was seen and evaluated in cardiology clinic today and previously had adjustments made on his metoprolol and diltiazem. He previously had been on amlodipine but did not tolerate this secondary to swelling. Due to complaint of headache, chest pain and obvious hypertensive urgency with blood pressures 200s over 110s in clinic he was referred to ED for further evaluation and admission. Pt does admit to significant amount of stress in last 2 months secondary to having to move with his and kids twice. Currently they are in transition to move again and are living with his in-laws. In ED patient did receive two 10 mg doses of IV hydralazine. Upon arrival patient's blood pressure was 205/103. After administration of 1st 10mg dose of IV hydralazine it did reduce to 169/92. This was short-lived as he returned to 200s over 100s. He received a second dose of the hydralazine without much improvement. His CBC is notable for mild leucocytosis of 12.1k, CMP notable for potassium 3.1 but troponin WNL. Chest x-ray negative for acute process. EKG initially showed sinus bradycardia HR 54 bpm and LBBB. Admission Exam Per Admitting Provider Constitutional: WD/WN, vitals as above, NAD, anxious, sitting up in bed, pleasant, conversing easily Head: Normocephalic, Atraumatic Eyes: PERRL, conjunctivae normal, anicteric sclerae ENMT: external ear and nose normal, oropharynx normal Neck: trachea midline, no thyromegaly normal visual inspection Respiratory: normal respiratory effort, lungs clear to auscultation, no wheeze, rales, rhonchi. Normal insp/exp effort, no accessory muscle use Cardiovascular: RRR, no murmur, no edema Vessels: no JVD or carotid bruit Chest: normal inspection of chest Abdomen: normal bowel sounds, soft, nontender, no hepatosplenomegaly Musculoskeletal: no cyanosis or clubbing, extremities motor strength 5/5 Skin: no rashes, warm and dry normal turgor Neurologic: PERRL, EOMI, accommodation nl, no face palsy, no dysarthria CN's II-XI intact bilaterally and moves all extremities Psychiatric: A+Ox3, euthymic affect : deferred Principal Diagnosis Hypertensive Emergency Discharge Exam General- oriented x 3, not in distress, speaks in sentences with no effort or accessory muscle use Eyes- anicteric Neck- no JVD Lungs- clear breath sounds bilaterally Heart- normal rate, regular rhythm; no murmurs Abdomen- normal bowel sounds, nondistended, soft, nontender Extremities- no pretibial edema, no calf tenderness Right wrist: No erythema/edema/warmth Neuro- alert, oriented x 3; no gross focal neurologic deficits Skin- warm & dry Psych: Normal mood and affect Discharge Data Allergies Allergy/AdvReac Type Severity Reaction Status Date / Time Penicillins Allergy Unknown , Verified 10/25/19 23:35 amlodipine AdvReac Mild edema Verified 03/30/20 08:31 Consultations 03/29/20 16:37 ED Decision to Admit Stat 03/29/20 17:53 Consult Supervisor [employer] Room Routine 03/29/20 19:23 Consult Cardiology Routine Consult Case Management - Discharge Planning Routine 03/30/20 14:35 Consult Cardiac Catheterization Routine 03/31/20 20:34 Consult Psychiatry Routine Procedures Performed Operation Date: 03/31/20 08:00 Actual Procedures p Cath, Left with Cors and Vent - José Miguel Ward MD s Cineradiography w/Routine Exam - José Miguel Ward MD s Ultrasound Vascular Access - José Miguel Ward MD Ordered Studies 03/29/20 17:48 CT head/brain wo con Stat Brain parenchyma: The brain parenchyma is normal in appearance. There is no hemorrhage, mass effect, or evidence of acute territorial ischemia by CT criteria. Negron-white matter differentiation is preserved. No extra-axial fluid collection is seen. Ventricles, sulci, cisterns: Normal in configuration. Intracranial vasculature: The visualized intracranial vasculature at the skull base is normal in appearance. Calvarium: Unremarkable. Sinuses and mastoids: The visualized paranasal sinuses are clear. The mastoid air cells are well pneumatized. Orbits: The bony orbits are grossly intact. IMPRESSION: No intracranial abnormality is identified. 03/31/20 06:26 CL Cath Imgs for PACS use only Routine Hospital Course (1) Hypertensive urgency: (2) LBBB (left bundle branch block): Per admitting service notes: This is a 54 year old M who has a significant PMH of HTN, HLD, PRIMITIVO, less than 60% stenosis of R renal artery, GERD, depression who presents to ED at referral of cardiology secondary to hypertensive urgency. In ED patient did receive two 10 mg doses of IV hydralazine. Upon arrival patient's blood pressure was 205/103, HR 54. After administration of 1st 10mg dose of IV hydralazine it did reduce to 169/92, HR 70s. This was short-lived as he returned to 200s/100s. He received a second dose of the hydralazine without much improvement. Discussed case with cardiology Dr. Patino who recommends admission to ICU for nicardpine gtt. Admit to ICU start nicardipine gtt D/C metoprolol and diltiazem start coreg 12.5mg po bid, 1st dose tonight start losartan 50mg daily, 1st dose tonight CT head w/o contrast given THOMAS and hypertensive urgency cycle troponins due to chest pain, but does appear to be musculoskeletal component echocardiogram - last 01/2020 EF 55%, mild LVH, Grade 1 DD known LBBB - per cardiology likely to undergo cath on Friday but need to get BP better controlled 03/31/2020 Troponins negative Echocardiogram ejection fraction 55 to 60%, abnormal septal wall motion consistent with LBBB pattern, otherwise normal wall motion, grade 1 diastolic d ysfunction Weaned off nicardipine drip Now transitioned to p.o. losartan, carvedilol, felodipine Amlodipine discontinued as patient reports severe edema with amlodipine use in the past Blood Pressure still labile Status post cardiac cath- Large-caliber left dominant coronary anatomy Mild luminal irregularities with a discrete 40 to 50% smooth narrowing mid left anterior descending Normal left ventricular systolic function EF 65% Marked systolic hypertension with elevated left end-diastolic pressure greater than 30 04/01/20 Cleared for discharge by cardiology service Discharged on: Felodipine, carvedilol, losartan Follow-up with geospatial information technologist as an outpatient (3) Anxiety: Likely contributing to elevated blood pressure History of depression Psychiatry service consulted, recommend sertraline 50 mg daily Follow-up with PCP as an outpatient Refer to psychiatrist (4) Hypokalemia: Resolved (5) Leucocytosis: Resolved No signs of infection (6) HLD (hyperlipidemia): continue statin (7) PRIMITIVO (obstructive sleep apnea): CPAP at --Will need to have CPAP arranged on discharge (8) Renal artery stenosis: Follows nephrology and has seen vascular < 60% of R renal artery stenosis continue ASA, statin (9) GERD (gastroesophageal reflux disease): continue PPI (10) DVT prophylaxis: SCD/TEDS Disposition: d/c home Follow up: PCP Dr. Duff upon discharge Follow-up with cardiology service in 2-3 weeks Total Time Total Time Spent Total Time Spent (In Minutes): > 30 minutes Discharge Plan Discharge Items Patient Disposition: Home - Self-Care Reason For Visit: HYPERTENSIVE URGENCY Discharge Diagnosis: Hypertensive Emergency Condition on Discharge: Good Activity: Resume your previous activity Activity Comment: gradually as tolerated Non-emergency contact: Primary Care Provider Call non-emergency contact if: you have any medication questions and your symptoms worsen Diet: Heart Healthy Addtl Attending Provider Instructions: [facility] on the day of discharge. Instructions hand-written on Paper Form. Pending Studies at Discharge: No Medications and DC Order Prescriptions: New carvedilol 12.5 mg tablet 12.5 mg PO BID Qty: 30 RF: 0 felodipine 5 mg tablet extended release 24 hr 5 mg PO DAILY Qty: 30 RF: 0 losartan 50 mg tablet 50 mg PO BID Qty: 30 RF: 0 rosuvastatin 20 mg tablet 20 mg PO DAILY Qty: 30 RF: 0 Continued omeprazole 20 mg capsule,delayed release(DR/EC) 20 mg PO DAILY RF: 0 fluticasone propionate [Flonase Allergy Relief] 50 mcg/actuation [place],Suspension 1 spray INTRANASAL DAILY RF: 0 multivitamin Tablet 1 tab PO DAILY RF: 0 aspirin [Baby Aspirin] 81 mg Tablet,Chewable 81 mg PO DAILY RF: 0 Discontinued tizanidine 2 mg tablet 2 mg PO TID PRN (Reason: Spasms) RF: 0 metoprolol tartrate 50 mg tablet 50 mg PO BID RF: 0 diltiazem HCl 60 mg tablet 120 mg PO BID RF: 0 rosuvastatin 5 mg tablet 5 mg PO HS RF: 0 Discharge Orders: Discharge Order (Routine); Ordered 04/05/20 Ordered By: Jamar Mott Admission Data Admit Date/Time: 03/29/20 17:53 Attending Provider: Jamar Mott Admit Provider: Jamar Mott Primary Care Provider: Bette Duff Other Providers: Jamar Mott ; Van Greene ; Raji Patino ; José Miguel Ward ; Emmanuel Ng ; Emeli Shah ; Tal Franks ; Colby Degroot ; Jimmy Garcia ; Juliette Boggs ; Raji Hardy ; Chrissy Weber ; Gladys Lane ; Tiffanie Escalante ; Jacobo Gordon I. ; Erica Santos ; Sheba Fink ; Debra Bazan
== END 2020-04-01 14:35 | disposition home or self-care (01) | DRG 287 ==
LOC: ED 14:04 → 1E 17:53